=== PATIENT | female | born 1960 | race Caucasian/White ===

== ENCOUNTER → 2017-11-25 08:02 | Outpatient (CLI) | payer BC, SELFPAY ==
[2017-11-25 09:11] LABS: Absolute Lymphocyte Count 1.98 X10^3/ul (0.83-4.51); Absolute Neutrophil Count 3.8 X10^3/uL (2.0-7.7); Basophil# 0.04 X10^3/uL; Basophil% 0.6 % (0-1); Eosinophil# 0.24 X10^3/uL; Eosinophils% 3.6 % (0-5); Hematocrit 45.9 % (37-47); Hemoglobin 15.5 g/dl (12.0-15.0); Lymphocyte # 1.98 X10^3/ul (4.0); Mean Corp Hgb Conc 33.8 g/gl (32-36); Mean Corpuscular Hgb 30.6 pg (27.0-32.0); Mean Corpuscular Volume 90.7 fL (81-99); Mean Platelet Vol. 10.3 fl (6.2-12.0); Monocyte# 0.49 X10^3/uL; Monocyte% 7.4 % (0-10); Neutrophil # 3.84 X10^3/uL (2.7-7.7); Neutrophil % 58.1 % (47-70); Platelet Count 282 K/mm3 (150-450); RBC Distribution Width SD 42.6 fl (35.1-43.9); Red Blood Count 5.06 M/mm3 (4.2-5.4); White Blood Count 6.6 K/mm3 (4.4-11.0)
[2017-11-25 09:12] LABS: POSITIVE COUNT NO; POSITIVE DIFFERENTIAL NO; POSITIVE MORPHOLOGY NO
[2017-11-25 09:33] LABS: AST(SGOT) 24 U/L (15-37); Alanine Aminotransfer ALT/SGPT 43 U/L (13-56); Albumin, Serum 4.4 g/dL (3.2-5.0); Alkaline Phosphatase 78 U/L (45-117); Anion Gap 6 (5-15); BUN 18 mg/dL (7-18); BUN/Creat Ratio 29.8 RATIO (10-20); Bilirubin, Direct 0.14 mg/dL (0.00-0.30); Calcium,Total 9.5 mg/dL (8.5-10.1); Chloride 106 mmol/L (98-107); Cholesterol 213 mg/dL (200); EST Glomerular Filtration Rate 108 mL/min (>60); Est Glom Filt Rate - Afr Amer 131 mL/min (>60); Ferritin 63 ng/mL (8-252); Globulin 3.1 g/dL (2.2-4.2); Glucose 77 mg/dL (74-106); High Density Lipoprotein 41 mg/dL; Iron 170 ug/dL (50-170); Potassium 4.1 mmol/L (3.5-5.1); Protein, Total 7.5 g/dL (6.4-8.2); Sodium Level 142 mmol/L (136-145); Triglycerides 68 mg/dL; Very Low Density Lipoprotein 14 mg/dL (5-40)
== END ==
PROVIDERS: Internal Medicine Cardiovascular Disease; Family Provider Family Medicine; PCP Family Medicine; Visit Provider Family Medicine
DX: I10 Essential (primary) hypertension (principal); D64.9 Anemia, unspecified; E78.5 Hyperlipidemia, unspecified
CPT/HCPCS: 80048; 80061; 80076; 82728; 83540; 85025

== ENCOUNTER → 2018-04-27 13:22 | Outpatient (CLI) | payer BC, SELFPAY ==
--- NOTE | 2018-04-27 13:24 | RAD_ITS ---
STUDY: X-RAY - RIGHT ANKLE REASON FOR EXAM: Female, 58 years old. Pain off and on right ankle medially. Patient states twisted right ankle last August 2017. TECHNIQUE: 3 view(s) of the ankle. COMPARISON: None. FINDINGS: Normal visualized distal tibia and fibula. Normal medial and lateral malleoli. Normal tibiotalar articulation and ankle mortise. There is an enthesophyte involving the posterior superior calcaneus at the site of insertion of the Achilles tendon. There is a calcaneal spur. The visualized subtalar, talonavicular, calcaneocuboid and tarsal articulations are normal. The soft tissue structures are unremarkable. RAD/Ankle min 3 Views IMPRESSION: There is an enthesophyte involving the posterior superior calcaneus at the site of insertion of the Achilles tendon. There is a calcaneal spur. Electronically Signed: Alex Ren MD at 22:08 EDT , Service support ,
== END ==
PROVIDERS: Family Provider Family Medicine; PCP Family Medicine; Visit Provider Family Medicine
DX: M25.571 Pain in right ankle and joints of right foot (principal)
CPT/HCPCS: 73610

== ENCOUNTER → 2018-05-12 08:03 | Outpatient (CLI) | payer BC, SELFPAY ==
[2018-05-12 09:11] LABS: AST(SGOT) 25 U/L (15-37); Alanine Aminotransfer ALT/SGPT 53 U/L (13-56); Alkaline Phosphatase 69 U/L (45-117); Bilirubin, Direct 0.18 mg/dL (0.00-0.30); Cholesterol 144 mg/dL (200); Globulin 2.9 g/dL (2.2-4.2); High Density Lipoprotein 40 mg/dL; Protein, Total 6.9 g/dL (6.4-8.2); T4 Free Direct 1.12 ng/dL (0.76-1.46); Thyroid Stim Hormone (TSH) 0.41 uIU/mL (0.358-3.74); Triglycerides 65 mg/dL; Very Low Density Lipoprotein 13 mg/dL (5-40)
== END ==
PROVIDERS: Internal Medicine Cardiovascular Disease; Family Provider Family Medicine; PCP Family Medicine; Referring Provider Family Medicine; Visit Provider Family Medicine
DX: E01.0 Iodine-deficiency related diffuse (endemic) goiter (principal); E78.5 Hyperlipidemia, unspecified
CPT/HCPCS: 36415; 80061; 80076; 84439; 84443

== ENCOUNTER → 2018-10-10 11:20 | Outpatient (CLI) | payer BC, SELFPAY ==
[2018-09-18 14:10] VITALS: BMI 30.7
--- NOTE | 2018-10-11 14:24 | STRESSREP ---
Stress Test Report Treadmill EKG: Resting EKG: Normal sinus rhythm, normal axis, normal intervals, no evidence of previous myocardial infarction. Treadmill EKG: Patient exercise according to Fabrice protocol for 6 minutes and 30 seconds achieving a maximum workload of 7.70 mets. Resting heart rate was initially 63 beats a minute and thania to maximum of 1 5 0 bpm which represents 93% of the maximal age-predicted heart rate. Resting blood pressure was 142/72, and thania to maximum of 192/68. Test was terminated due to the attainment of target heart rate and leg discomfort. During exercise the patient's heart rate increased as expected. Patient had rare PVCs during exercise. Patient had subtle upsloping ST segment depression located along the inferior lateral leads at 2 minutes 56 seconds into exercise, with a maximal ST segment depression of [address] segment depression along the inferior lateral leads at 6 minutes 31 seconds. These changes quickly returned to baseline by 1 minute into recovery. Conclusions: Abnormal, adequate, treadmill EKG. Positive for ischemia by EKG criteria. No anginal symptoms noted. Mild PVCs noted during exercise. Hypertensive blood pressure response to exercise. Average exercise capacity for age. Recommend clinical correlation or alternative mode of testing if coronary ischemia is strongly suspected. No complications.
== END ==
PROVIDERS: Family Provider Family Medicine; PCP Family Medicine; Referring Provider Internal Medicine Cardiovascular Disease; Visit Provider Internal Medicine Cardiovascular Disease
DX: E78.5 Hyperlipidemia, unspecified (principal); I10 Essential (primary) hypertension; Z82.49 Family history of ischemic heart disease and other diseases of the circulatory system
CPT/HCPCS: 93017

== ENCOUNTER → 2018-10-24 12:24 | Outpatient (CLI) | payer BC, SELFPAY ==
[2018-09-18 14:10] VITALS: BMI 30.7
--- NOTE | 2018-10-24 12:30 | STE_ITS ---
Reason For Study: Abnormal Regular Stress Test; Family HX of CAD Stress Results Protocol: Fabrice Protocol Maximum Predicted HR: 161 bpm Target HR: 137 bpm % Maximum Predicted HR: 84 % DurationHeart Rate Stage (mm:ss) (bpm) BP Comment Baseline 65 160/82No Chest Pain Fabrice Protocol Stage I 3:00 113 170/80No Chest Pain Fabrice Protocol Stage II 3:00 129 188/84No Chest Pain; Mild Dyspnea Fabrice Protocol Stage III 1:00 136 / No Chest Pain; Mild to Moderate Dyspnea Recovery 87 132/78 Stress Duration: 7:00 mm:ss Maximum Stress HR: 136 bpm METS: 10 Baseline Echocardiogram Findings The estimated ejection fraction is 65 %. Stress Echo Wall motion Data Resting WM Intermediate WM Stress WM Resting Wall Motion Wall Motion Stress No regional wall motion No regional wall motion abnormalities noted. abnormalities noted. EKG Data Normal intervals are noted. The patient exercised according to the regular Fabrice protocol for a total duration of 7:00. The maximum heart rate attained was 139 beats per minute. This was 86% of maximum predicted heart rate. The patient exercised into stage 3 of the Fabrice protocol. The stress ECG displays diffuse abnormal ST segments. No clinical angina was noted. Interpretation Summary The estimated ejection fraction is 65 %. Normal, adequate, treadmill echocardiogram. Negative for ischemia by echocardiographic criteria. No anginal symptoms noted. Rare PVCs noted. Appropriate blood pressure response to exercise. Below average exercise capacity for age. Patient did have diffuse ST segment depression on her EKG during exercise which quickly resolved during recovery. No associated wall motion abnormalities noted. Final LVEF is 75%. Test terminated due to dyspnea and target heart rate achieved. No complications. Ordering Physician: Mayo Adams Referring Physician: Andre Lopez Performed By: Scarlett Heard RDCS
== END ==
PROVIDERS: Family Provider Family Medicine; PCP Family Medicine; Referring Provider Internal Medicine Cardiovascular Disease; Visit Provider Internal Medicine Cardiovascular Disease
DX: R94.39 Abnormal result of other cardiovascular function study (principal); E78.5 Hyperlipidemia, unspecified; I10 Essential (primary) hypertension; Z82.49 Family history of ischemic heart disease and other diseases of the circulatory system; Z98.890 Other specified postprocedural states
CPT/HCPCS: 93017; 93350

== ENCOUNTER → 2018-11-16 07:48 | Outpatient (CLI) | payer BC, SELFPAY ==
[2018-09-18 14:10] VITALS: BMI 30.7
[2018-11-16 08:37] LABS: AST(SGOT) 24 U/L (15-37); Alanine Aminotransfer ALT/SGPT 41 U/L (13-56); Albumin, Serum 4.2 g/dL (3.2-5.0); Alkaline Phosphatase 77 U/L (45-117); Bilirubin, Direct 0.19 mg/dL (0.00-0.30); Cholesterol 166 mg/dL (200); High Density Lipoprotein 41 mg/dL; Protein, Total 7.2 g/dL (6.4-8.2); Triglycerides 125 mg/dL; Very Low Density Lipoprotein 25 mg/dL (5-40)
== END ==
PROVIDERS: Family Provider Family Medicine; PCP Family Medicine; Referring Provider Nurse Practitioner Family; Visit Provider Nurse Practitioner Family
DX: E78.5 Hyperlipidemia, unspecified (principal)
CPT/HCPCS: 36415; 80061; 80076

== ENCOUNTER → 2019-10-25 | Outpatient (CLI) | payer BC, SELFPAY ==
[2019-04-12 14:46] VITALS: BMI 30.7
[2019-10-25 09:21] LABS: Absolute Lymphocyte Count 2.18 X10^3/uL (0.83-4.51); Absolute Neutrophil Count 4.3 X10^3/uL (2.0-7.7); Basophil# 0.07 X10^3/uL; Basophil% 0.9 % (0-1); Eosinophils% 2.7 % (0-5); Hematocrit 46.4 % (37-47); Hemoglobin 15.3 g/dL (12.0-15.0); Lymphocyte # 2.18 X10^3/ul (4.0); Lymphocyte % 29.3 % (19-41); Mean Corpuscular Hgb 30.5 pg (27.0-32.0); Mean Corpuscular Volume 92.4 fL (81-99); Mean Platelet Vol. 9.8 fl (6.2-12.0); Monocyte# 0.62 X10^3/uL; Monocyte% 8.3 % (0-10); NRBC Flagged by Analyzer 0 % (0-5); Neutrophil # 4.33 X10^3/uL (2.7-7.7); Neutrophil % 58.3 % (47-70); Platelet Count 294 K/mm3 (150-450); RBC Distribution Width CV 12.7 % (11.6-14.6); RBC Distribution Width SD 42.7 fl (35.1-43.9); Red Blood Count 5.02 M/mm3 (4.2-5.4); White Blood Count 7.4 K/mm3 (4.4-11.0)
[2019-10-25 09:48] LABS: AST(SGOT) 26 U/L (15-37); Alanine Aminotransfer ALT/SGPT 48 U/L (13-56); Albumin, Serum 4.2 g/dL (3.2-5.0); Alkaline Phosphatase 84 U/L (45-117); Bilirubin, Direct 0.16 mg/dL (0.00-0.30); Cholesterol 194 mg/dL (200); High Density Lipoprotein 43 mg/dL; Protein, Total 7.2 g/dL (6.4-8.2); Triglycerides 156 mg/dL; Very Low Density Lipoprotein 31 mg/dL (5-40)
[2019-10-25 09:50] LABS: Anion Gap 2 (5-15); BUN 15 mg/dL (7-18); BUN/Creat Ratio 24.2 RATIO (10-20); Calcium,Total 9.7 mg/dL (8.5-10.1); Chloride 107 mmol/L (98-107); Creatinine, Serum 0.62 mg/dL (0.55-1.02); EST Glomerular Filtration Rate 104 mL/min (>60); Est Glom Filt Rate - Afr Amer 126 mL/min (>60); Glucose 99 mg/dL (74-106); Potassium 4.2 mmol/L (3.5-5.1); Sodium Level 141 mmol/L (136-145)
== END | disposition home or self-care (01) ==
LOC: LAB 08:56
PROVIDERS: Internal Medicine Cardiovascular Disease; Family Provider Family Medicine; PCP Family Medicine; Referring Provider Family Medicine; Visit Provider Family Medicine
DX: I10 Essential (primary) hypertension (principal); D64.9 Anemia, unspecified; E78.5 Hyperlipidemia, unspecified
CPT/HCPCS: 36415; 80048; 80061; 80076; 85025

== ENCOUNTER → 2020-05-08 | Outpatient (CLI) | payer BC, SELFPAY ==
[2020-05-08 09:40] VITALS: BMI 31.1
[2020-05-08 11:11] LABS: AST(SGOT) 25 U/L (15-37); Alanine Aminotransfer ALT/SGPT 46 U/L (13-56); Albumin, Serum 4.2 g/dL (3.2-5.0); Alkaline Phosphatase 82 U/L (45-117); Bilirubin, Direct 0.21 mg/dL (0.00-0.30); Cholesterol 174 mg/dL (200); Globulin 3.1 g/dL (2.2-4.2); High Density Lipoprotein 39 mg/dL; Protein, Total 7.3 g/dL (6.4-8.2); Triglycerides 178 mg/dL; Very Low Density Lipoprotein 36 mg/dL (5-40)
== END | disposition home or self-care (01) ==
LOC: LAB 10:07
PROVIDERS: PCP Family Medicine; Referring Provider Physician Assistant Medical; Visit Provider Physician Assistant Medical
DX: E78.5 Hyperlipidemia, unspecified (principal)
CPT/HCPCS: 36415; 80061; 80076

== ENCOUNTER 2020-10-23 08:00 | Outpatient (RCR) | payer BC, SELFPAY ==
[2020-05-08 09:40] VITALS: BMI 31.1
[2020-10-23] MEDS: COVID-19 VACC, MRNA(PFIZER)/PF 30 MCG/0.3 ML SYRINGE IM (15:47)
[2020-11-13] MEDS: COVID-19 VACC, MRNA(PFIZER)/PF 30 MCG/0.3 ML SYRINGE IM (15:17)
== END 2020-10-23 23:59 ==
LOC: IMMUN 08:00
PROVIDERS: PCP Family Medicine; Visit Provider Family Medicine
DX: Z23 Encounter for immunization (principal)
CPT/HCPCS: 0001A; 0002A; 91300

== ENCOUNTER → 2021-02-20 09:28 | Outpatient (CLI) | payer BC, SELFPAY ==
[2020-05-08 09:40] VITALS: BMI 31.1
[2021-02-20 10:25] LABS: AST(SGOT) 28 U/L (15-37); Alanine Aminotransfer ALT/SGPT 49 U/L (13-56); Albumin, Serum 4.2 g/dL (3.2-5.0); Alkaline Phosphatase 80 U/L (45-117); Bilirubin, Direct 0.19 mg/dL (0.00-0.30); Cholesterol 178 mg/dL (200); High Density Lipoprotein 43 mg/dL; Protein, Total 7.2 g/dL (6.4-8.2); Triglycerides 124 mg/dL; Very Low Density Lipoprotein 25 mg/dL (5-40)
== END ==
PROVIDERS: PCP Family Medicine; Referring Provider Physician Assistant Medical; Visit Provider Physician Assistant Medical
DX: E78.5 Hyperlipidemia, unspecified (principal); E78.00 Pure hypercholesterolemia, unspecified
CPT/HCPCS: 36415; 80061; 80076

== ENCOUNTER 2021-08-16 07:43 | Outpatient (CLI) | payer BC, SELFPAY ==
[2021-08-16 10:03] LABS: AST(SGOT) 29 U/L (15-37); Alanine Aminotransfer ALT/SGPT 57 U/L (13-56); Alkaline Phosphatase 78 U/L (45-117); Bilirubin, Direct 0.19 mg/dL (0.00-0.30); Cholesterol 186 mg/dL (200); Globulin 3.2 g/dL (2.2-4.2); High Density Lipoprotein 41 mg/dL; Protein, Total 7.2 g/dL (6.4-8.2); Triglycerides 134 mg/dL; Very Low Density Lipoprotein 27 mg/dL (5-40)
== END 2021-08-16 23:59 | disposition home or self-care (01) ==
LOC: LAB 07:46
PROVIDERS: PCP Family Medicine; Referring Provider Nurse Practitioner Gerontology; Visit Provider Nurse Practitioner Gerontology
DX: E78.00 Pure hypercholesterolemia, unspecified (principal)
CPT/HCPCS: 36415; 80061; 80076

== ENCOUNTER → 2022-08-19 | Outpatient (CLI) | payer BC, SELFPAY ==
--- NOTE | 2022-08-19 15:15 | US_ITS ---
INDICATION: NODULE EXAMINATION: Ultrasound US Thyroid (eg thyroid, parathyroid, parotid) TECHNIQUE: Tse scale and color doppler imaging was performed of the thyroid gland. COMPARISON: None. FINDINGS: RIGHT THYROID LOBE: 4.2 x 1.4 x 0.9. Heterogeneous echotexture with normal vascularity. Lower pole 0.79 x 0.46 x 0.68 cm hypoechoic nodule. Trads Category 2. 0.3 x 0.2 x 0.2 cm mid pole complex cyst. LEFT THYROID LOBE: 4.6 x 1.9 x 1.9 cm.. Heterogeneous echotexture with normal vascularity. 0.76 x 0.55 x 0.55 cm mixed cystic and solid nodule with mixed echogenicity and lobular borders to as category 3. 0.3 x 0.3 x 0.3 cm cyst midpole. ISTHMUS: 0.3 cm. No thyroid nodules are present. US/Thyroid IMPRESSION: Multinodular goiter as above. Electronically Signed: Andre De La O MD, ROLANDO at 23:32 EST ,
== END | disposition home or self-care (01) ==
PROVIDERS: PCP Family Medicine; Referring Provider Family Medicine; Visit Provider Family Medicine
DX: E04.1 Nontoxic single thyroid nodule (principal)
CPT/HCPCS: 76536

== ENCOUNTER → 2022-11-26 | Outpatient (CLI) | payer BC, SELFPAY ==
[2022-11-26 09:11] LABS: AST(SGOT) 32 U/L (15-37); Alanine Aminotransfer ALT/SGPT 59 U/L (13-56); Albumin, Serum 4.1 g/dL (3.2-5.0); Alkaline Phosphatase 73 U/L (45-117); Bilirubin, Direct 0.25 mg/dL (0.00-0.30); Cholesterol 180 mg/dL (200); Globulin 2.7 g/dL (2.2-4.2); High Density Lipoprotein 43 mg/dL; Protein, Total 6.8 g/dL (6.4-8.2); Triglycerides 117 mg/dL; Very Low Density Lipoprotein 23 mg/dL (5-40)
== END | disposition home or self-care (01) ==
LOC: LAB 08:35
PROVIDERS: PCP Family Medicine; Referring Provider Physician Assistant Medical; Visit Provider Physician Assistant Medical
DX: E78.5 Hyperlipidemia, unspecified (principal); Z82.49 Family history of ischemic heart disease and other diseases of the circulatory system
CPT/HCPCS: 36415; 80061; 80076

== ENCOUNTER → 2024-01-05 | Outpatient (CLI) | payer BC, SELFPAY ==
[2024-01-05 09:59] LABS: AST(SGOT) 24 U/L (15-37); Alanine Aminotransfer ALT/SGPT 43 U/L (13-56); Albumin, Serum 4.2 g/dL (3.2-5.0); Alkaline Phosphatase 74 U/L (45-117); Bilirubin, Direct 0.25 mg/dL (0.00-0.30); Cholesterol 180 mg/dL (200); Globulin 2.9 g/dL (2.2-4.2); High Density Lipoprotein 43 mg/dL; Protein, Total 7.1 g/dL (6.4-8.2); Triglycerides 126 mg/dL; Very Low Density Lipoprotein 25 mg/dL (5-40)
== END | disposition home or self-care (01) ==
PROVIDERS: PCP Family Medicine; Referring Provider Physician Assistant Medical; Visit Provider Physician Assistant Medical
DX: E78.00 Pure hypercholesterolemia, unspecified (principal)
CPT/HCPCS: 36415; 80061; 80076

== ENCOUNTER → 2024-04-11 | Outpatient (CLI) | payer SELFPAY ==
--- NOTE | 2024-04-11 13:11 | CT_ITS ---
STUDY: CT CHEST WITHOUT CONTRAST REASON FOR EXAM: Female, 64 years old. HTN RADIATION DOSAGE (If Supplied By Facility): CTDIvol = ( 12.19 ) mGy, DLP = ( 195.04 ) mGycm TECHNIQUE: Transaxial imaging was performed without the administration of intravenous contrast material. Cardiac over read examination. Individualized dose optimization techniques were used for this CT. COMPARISON: No relevant priors. FINDINGS: CHEST Minimal linear scarring along the anterior medial aspect of the right middle lobe and lingular segment of the left upper lobe. There is no demonstrated pleural abnormality. There are calcifications of the coronary arteries. Normal mediastinum. Normal hilar regions. Normal unenhanced pulmonary arteries. There is atherosclerotic calcification of the aortic arch. Normal osseous structures. There is no demonstrated abnormality of the visualized upper abdomen. CT/Limited Chest CT Cardiac Only IMPRESSION: Coronary artery calcification. Mild linear scarring along the anterior medial aspect of the right middle lobe and lingular segment of the left upper. Electronically Signed: Vaibhav Leos MD at 14:10 EDT ,
--- NOTE | 2024-04-16 06:38 | CA.SCORE ---
Calcium Scoring Date of Study:: 04/11/24 Indications Indications: Hypertension Coronary Calcium Scoring: High-resolution Computed Tomographic imaging of the chest was performed on [04/11/2024], with particular attention paid to the coronary arteries. Images from the examination were analyzed for the presence and extent of coronary artery calcification , using coronary calcium quantification software. The patient tolerated the procedure well and there were no complications. The results of the coronary calcification analysis are provided below. Findings Coronary Artery Left Main (LM): 0 Left Anterior Descending (LAD): 0 Left Circumflex (LCX): 31 Right Coronary Artery (RCA): 52.3 Total Agatston Score: 83.3 Percentile Rankin-75th percentile Calcium Scoring Interpretation: Different methods to categorize the overall amount of coronary plaque. Overall amount CAC SIS Visual of coronary plaque P1 Mild -100 <2 1-2 vessels with mild amount of plaque P2 Moderate 101-300 3-4 1-2 vessels with moderate amount, 3 vessels with mild amount of plaque P3 Severe 301-999 5-7 3 vessels with moderate amount, 1 vessel with severe amount of plaque P4 Extensive >1000 >8 2-3 vessels with severe amount of plaque Calcium Score: Mild: 1-2 vessels w/mild amount of plaque Conclusion: Mild atherosclerotic plaquing noted in the right coronary artery.
== END | disposition home or self-care (01) ==
PROVIDERS: PCP Family Medicine; Referring Provider Physician Assistant Medical; Visit Provider Physician Assistant Medical
DX: I10 Essential (primary) hypertension (principal); E78.5 Hyperlipidemia, unspecified; Z82.49 Family history of ischemic heart disease and other diseases of the circulatory system
CPT/HCPCS: 75571; 76380

== ENCOUNTER → 2024-06-19 | Outpatient (CLI) | payer MEDICARE, SELFPAY ==
[2024-06-19 08:51] LABS: Absolute Lymphocyte Count 2.41 X10^3/uL (0.83-4.51); Absolute Neutrophil Count 4.6 X10^3/uL (2.0-7.7); Basophil# 0.07 X10^3/uL; Basophil% 0.9 % (0-1); Eosinophil# 0.28 X10^3/uL; Eosinophils% 3.5 % (0-5); Hematocrit 43.9 % (37-47); Hemoglobin 14.8 g/dL (12.0-15.0); Lymphocyte # 2.41 X10^3/ul (0.83-4.51); Lymphocyte % 30.4 % (19-41); Mean Corp Hgb Conc 33.7 g/dL (32-36); Mean Corpuscular Hgb 30.6 pg (27.0-32.0); Mean Corpuscular Volume 90.7 fL (81-99); Mean Platelet Vol. 10.2 fl (6.2-12.0); Monocyte% 6.3 % (0-10); NRBC Flagged by Analyzer 0 % (0-5); Neutrophil # 4.61 X10^3/uL (2.7-7.7); Neutrophil % 58.3 % (47-70); Platelet Count 269 K/mm3 (150-450); RBC Distribution Width CV 12.7 % (11.6-14.6); RBC Distribution Width SD 42.1 fl (35.1-43.9); Red Blood Count 4.84 M/mm3 (4.2-5.4); White Blood Count 7.9 K/mm3 (4.4-11.0)
[2024-06-19 09:32] LABS: AST(SGOT) 25 U/L (15-37); Alanine Aminotransfer ALT/SGPT 44 U/L (13-56); Alkaline Phosphatase 91 U/L (45-117); Anion Gap 4 (5-15); BUN 14 mg/dL (7-18); BUN/Creat Ratio 21.9 RATIO (10-20); Bilirubin, Direct 0.25 mg/dL (0.00-0.30); Calcium,Total 9.7 mg/dL (8.5-10.1); Chloride 106 mmol/L (98-107); Cholesterol 168 mg/dL (200); Creatinine, Serum 0.64 mg/dL (0.55-1.02); EST Glomerular Filtration Rate 99 mL/min (>60); Est Glom Filt Rate - Afr Amer 120 mL/min (>60); Globulin 2.7 g/dL (2.2-4.2); Glucose 94 mg/dL (74-106); High Density Lipoprotein 46 mg/dL; Potassium 4.1 mmol/L (3.5-5.1); Protein, Total 6.7 g/dL (6.4-8.2); Sodium Level 140 mmol/L (136-145); Thyroid Stim Hormone (TSH) 0.617 uIU/mL (0.358-3.740); Triglycerides 118 mg/dL; Very Low Density Lipoprotein 24 mg/dL (5-40)
== END | disposition home or self-care (01) ==
LOC: LAB 08:16
PROVIDERS: PCP Family Medicine; Referring Provider Physician Assistant Medical; Visit Provider Physician Assistant Medical
DX: I10 Essential (primary) hypertension (principal); E04.2 Nontoxic multinodular goiter
CPT/HCPCS: 36415; 80048; 80061; 80076; 84443; 85025

== ENCOUNTER → 2025-01-13 | Outpatient (CLI) | payer MEDICARE, SELFPAY ==
[2025-01-13 09:38] LABS: AST(SGOT) 26 U/L (<=31); Alanine Aminotransfer ALT/SGPT 38 U/L (<=34); Albumin, Serum 4.4 g/dL (3.4-4.8); Alkaline Phosphatase 85 U/L (35-104); Bilirubin, Direct 0.26 mg/dL (0.00-0.30); Cholesterol 167 mg/dL (<=200); Globulin 2.2 g/dL (2.2-4.2); High Density Lipoprotein 42 mg/dL; Low Density Lipoprotein Calc. 101 mg/dL; Protein, Total 6.6 g/dL (5.9-8.4); Total Bilirubin 0.62 mg/dL (0.00-1.30); Triglycerides 119 mg/dL; Very Low Density Lipoprotein 24 mg/dL (5-40); cholesterol:hdl ratio screen 3.97
== END | disposition home or self-care (01) ==
LOC: LAB 06:18
PROVIDERS: PCP Family Medicine; Referring Provider Physician Assistant Medical; Visit Provider Physician Assistant Medical
DX: E78.00 Pure hypercholesterolemia, unspecified (principal)
CPT/HCPCS: 36415; 80061; 80076

== ENCOUNTER → 2025-07-14 | Outpatient (CLI) | payer MEDICARE, SELFPAY ==
--- OUTSIDE RECORDS SUMMARY | 2025-07-14 06:30 | XMS RPT_ITS | CCD ---
Author Organization [facility] Care Team Providers Care Appraiser Personal Property Name Role Phone LORRAINE Fox, Tegan Roque Unavailable Unavailbarbara Fox RN, Tegan Roque Unavailable UnavailCheli Ybarra Unavailable Unavailable LORRAINE Fox, Tegan Roque Unavailable Unavailbarbara Andrea RN, Soraida A Unavailable Unavailable DeFinis, Harumi Y Unavailable Unavailable Eneida Luui Unavailable Unavailable Cheli Luu Unavailable Unavailable Alexus Ortiz Primary Care Provider UnavailDr. Luis Miguel Molina Primary Care Provider Dr. Luis Miguel Gilbert Referring Provider ABDELRAHMAN Berumen Attending Provider Alexus Ortiz Primary Care Provider UnavailAlexus Campbell Primary Care Provider UnavailLuis Miguel Molina DO Primary Care Provider Leah Berumen Referring Unavail able Luis Miguel Gilbert Primary Care Unavailable Leah Berumen Attending Unavail able Luis Miguel Gilbert Primary Care Unavailable Luis Miguel Gilbert Referring Unavailable Piotr Santos Attending Unavailable Leah Berumen Referring Unavail able Leah Berumen Attending Unavail able Luis Miguel Gilbert Primary Care Unavailable Rod Angel Attending Unavailable Leah Berumen Referring Unavail able Leah Berumen Consulting Unavail able Luis Miguel Gilbert Primary Care Unavailable oRd Angel Attending Unavailable Leah Berumen Referring Unavail able Luis Miguel Gilbert Primary Care Unavailable Leah Berumen Attending Unavail able Dr. Luis Miguel Gilbert DO Primary Care Provider Leah Berumen Attending Provider [phone] Leah Berumen Referring Provider Dr. Luis Miguel Gilbert DO Referring Provider Dr. Piotr Santos MD Attending Provider LUIS MIGUEL GILBERT Primary Care Unavailable NIA GRIFFIN Referring Unavail able NIA GRIFFIN Referring Unavail able LUIS MIGUEL GILBERT Primary Care Unavailable OLENA ALEXUS MCLAUGHLIN Primary Care Unavailable NIA GRIFFIN Attending Unavail able Medications Current Medications Medication Drug Class(es) Dates Sig (Normalized) Sig (Original) aspirin 81 mg delayed release oral tablet (20 sources) Nonsteroidal Anti-inflammatory Drug Start: 09-06-2017 Aspirin (Adult Low Dose Aspirin) 81 mg tablet,delayed release (DR/EC) Active 81 mg PO daily September 06, 2017 1:00am Start: 01-19-2015 take 1 tablet by [place] once daily ASPIRIN 81 MG TABS One tablet by mouth daily ASPIRIN [id number] Mayo Adams MD Start: 01-19-2015 take 1 tablet by [place] once daily ASPIRIN 81 MG TABS One tablet by mouth daily ASPIRIN [id number] Mayo Adams MD Comment on above: Take 81 mg by mouth once daily. atorvastatin 40 mg oral tablet (6 sources) HMG-CoA Reductase Inhibitor Start: 04-16-20 24 take 1 tablet by mouth once daily at bedtime atorvastatin (LIPITOR) 40 mg tablet Take 40 mg by mouth daily at bedtime. 07/13/2024 Active Calcium Carb, Citrate, Malate 250 mg calcium capsule (2 sources) Start: 01-17-20 25 take 1 mg by mouth once daily Calcium Carb, Citrate, Malate 250 mg calcium capsule Active mg PO DAILY January 16, 2025 12:00am cholecalciferol 0.05 mg oral tablet (20 sources) Vitamin D Start: 03-22-20 18 take 1 tablet by mouth once daily Cholecalciferol (Vitamin D3) 2,000 unit tablet Active 2000 U PO daily March 22, 2018 12:00am Start: 09-07-2017 End: 03-22-2018 take 1 tablet by mouth once Cholecalciferol (Vitamin D 3) (Vitamin D3) 2,000 unit tablet Discontinued 2000 U PO ONCE 30 September 07, 2017 1:00am March 22, 2018 2:42pm Cholecalciferol, Vitamin D3, 50 mcg (2,000 unit) cap Take by mouth. Active Comment on above: Take by mouth. loratadine 10 mg oral tablet (11 sources) Start: 01-16-2025 take 1 tablet by mouth once daily Loratadine (Claritin) 10 mg tablet Active 10 mg PO daily January 16, 2025 12:00am take 1 tablet by mouth once indigo y loratadine (LORADAMED) 10 mg tablet Take 10 mg by mouth once daily. Active Comment on above: Take 10 mg by mouth once daily. Completed/Discontinued Medications Medication Drug Class(es) Dates Sig (Normalized) Sig (Original) atenolol 50 mg oral tablet (20 sources) beta-Adrenergic Ruth Start: 09-06-2017 End: 03-22-2018 Atenolol 50 mg tablet Discontinued 25 mg PO daily September 06, 2017 1:00am March 22, 2018 2:42pm Start: 09-06-2017 End: 03-22-2018 take 25 mg by mouth once daily Atenolol Discontinued 2 5 MG PO daily September 06, 2017 1:00am March 22, 2018 2:42pm Start: 01-19-2015 End: 02-20-2024 take 1 tablet by mouth once daily Atenolol 50 mg tablet Discontinued 50 mg PO daily December 19, 2022 10:02am January 05, 2024 8:48am Comment on above: Take 50 mg by mouth once daily. cetirizine hydrochloride 10 mg oral tablet (4 sources) Histamine-1 Receptor Antagonist Start: 2020 End: 2024 take 1 tablet by mouth once daily as needed Cetirizine (Zyrtec) 10 mg tablet Discontinued 10 mg PO DAILY as needed 2021 12:00am January 16, 2025 10:56am gemfibrozil 600 mg oral tablet (4 sources) Peroxisome Proliferator Receptor alpha Agonist Start: 2017 End: 2017 Gemfibrozil 600 mg tablet Discontinued 600 mg PO TWICE A DAY 60 October 10, 2017 1:00am March 22, 2018 2:58pm administer 30 minutes before morning and evening meals hydroCHLOROthiazide 12.5 mg oral tablet (20 sources) Thiazide Diuretic Start: 2017 End: 2023 take 1 tablet by mouth once daily Hydrochlorothiazide 12.5 mg tablet Discontinued 12.5 mg PO daily March 13, 2023 1:03pm January 05, 2024 8:48am Start: 03-13-2017 take 1 tablet by [place] once daily HYDROCHLOROTHIAZIDE 12.5 MG TABS One tablet by mouth daily HYDROCHLOROTHIAZIDE [id number] Walter Reyes NP lisinopril 2.5 mg oral tablet (17 sources) Angiotensin Converting Enzyme Inhibitor Start: 06-06-2022 End: 01-05-2024 take 1 tablet by mouth once daily Lisinopril 2.5 mg tablet Discontinued 2.5 mg PO DAILY May 29, 2023 8:58am January 05, 2024 8:48am Comment on above: Take 2.5 mg by mouth once daily. meloxicam 15 mg oral tablet (16 sources) Nonsteroidal Anti-inflammatory Drug Start: 01-19-2015 End: 02-17-2015 take 1 tablet by mouth once daily MELOXICAM 15 MG TABS One tablet by mouth daily MELOXICAM [id number] Mayo Adams MD MULTIPLE VITAMINS-MINERALS (9 sources) Start: 02-17-2015 take 1 tablet by mouth once daily CENTRUM SILVER TABS One tablet by mouth daily MULTIPLE VITAMINS-MINERALS [id number] Mayo Adams MD Start: 02-17-2015 End: 02-27-2017 take 1 tablet by mouth once daily CENTRUM SILVER TABS One tablet by mouth daily MULTIPLE VITAMINS-MINERALS [id number] Walter Reyes NP Start: 02-17-2015 End: 02-27-2017 take 1 tablet by mouth once daily CENTRUM SILVER TABS One tablet by mouth daily MULTIPLE VITAMINS-MINERALS [id number] Walter Reyes NP Start: 02-17-2015 take 1 tablet by [place] once daily CENTRUM SILVER TABS One tablet by mouth daily MULTIPLE VITAMINS-MINERALS [id number] Mayo Adams MD MULTIPLE VITAMINS-MINERALS (5 sources) Start: 02-17-2015 End: 02-27-2017 take 1 tablet by mouth once daily CENTRUM SILVER TABS One tablet by mouth daily MULTIPLE VITAMINS-MINERALS [id number] Walter Reyes BLANQUITA Start: 02-17-2015 take 1 tablet by [place] once daily CENTRUM SILVER TABS One tablet by mouth daily MULTIPLE VITAMINS-MINERALS [id number] Mayo Adams MD Multivitamin preparation (2 sources) Start: 2021 End: 06-06-2022 take 1 tablet by mouth once daily Multivitamin Discontinued 1 TABLET PO DAILY 2021 12:00am June 06, 2022 11:16am Start: 2021 End: 06-06-2022 take 1 tablet by mouth once daily Multivitamin Discontinued 1 TABLET PO DAILY February 22, 2021 11:00pm June 06, 2022 10:16am Multivitamin tablet (2 sources) Start: 2021 End: 06-06-2022 Multivitamin tablet Discontinued 1 {tbl} PO DAILY 2021 12:00am June 06, 2022 11:16am nadolol 20 mg oral tablet (8 sources) beta-Adrenergic Ruth Start: 01-19-2015 take 1 tablet by mouth once daily NADOLOL 20 MG TABS One tablet by mouth daily NADOLOL [id number] MIGEL SortoC simvastatin 40 mg oral tablet (20 sources) HMG-CoA Reductase Inhibitor Start: 03-22-2018 End: 04-16-2024 take 1 tablet by mouth once daily in the evening Simvastatin 40 mg tablet Discontinued 40 mg PO EVERY EVENING February 20, 2024 7:59am April 16, 2024 4:08pm Start: 09-06-2017 End: 10-10-2017 take 1 tablet by mouth once daily in the evening Simvastatin 40 mg tablet Discontinued 40 mg PO EVERY EVENING September 06, 2017 1:00am October 10, 2017 6:53pm Start: 01-19-2015 take 1 tablet by [place] once daily SIMVASTATIN 40 MG TABS one tablet by mouth every night SIMVASTATIN [id number] Mayo Adams MD Start: 06-07-2010 End: 07-31-2024 simvastatin 20 mg ORAL table t Take 40 mg by mouth. Avoid grapefruit juice. 0 06/07/2010 07/31/2024 Discontinued Start: 06-07-2010 take 1 tablet by [place] once daily simvastatin 20 mg ORAL tablet Take one(1) tablet daily. 0 06/07/2010 Active Comment on above: Take one(1) tablet d aily. Take 40 mg by mouth. Avoid grapefruit juice. Problems Active Problems Problem Classification Problem Date Documented Date Episodic/Chronic Disorders of lipid metabolism (17 sources) Hyperlipidemia; Translations: [Hyperlipidemia, unspecified] Onset: 02-10-2015 02-10-2015 Chronic Essential hypertension (20 sources) Hypertensive disorder; Translations: [Essential hypertension] Onset: 06-15-2012 01-16-2015 Chronic Other nutritional; endocrine; and metabolic disorders (6 sources) Body mass index (BMI) 30.0-30.9, adult; Translations: [Body mass index (BMI) 30.0-30.9, adult] Onset: 01-16-2015 02-27-2017 Chronic Other nutritional; endocrine; and metabolic disorders (13 sources) Obese class I; Translations: [Obesity, unspecified] Onset: 04-04-2022 Chronic Other screening for suspected conditions (not mental disorders or infectious disease) (11 sources) Patient encounter status; Translations: [Encounter for screening mammogram for malignant neoplasm of breast] Onset: 09-23-2024 Episodic Residual codes; unclassified (8 sources) Family history of ischemic heart disease; Translations: [Family history of ischemic heart disease and other diseases of the circulatory system] Onset: 01-19-2015 01-19-2015 Episodic Residual codes; unclassified (3 sources) Menopause present; Translations: [Asymptomatic menopausal state] 07-31-2024 Episodic Residual codes; unclassified (3 sources) Postmenopausal state; Translations: [Asymptomatic menopausal state] 07-31-2024 Episodic Past or Other Problems Problem Classification Problem Date Documented Date Episodic/Chronic Conditions associated with dizziness or vertigo (8 sources) Dizziness and giddiness; Translations: [Dizziness and giddiness] Onset: 01-16-2015 01-16-2015 Episodic Other aftercare (13 sources) Other alf (current) drug therapy; Translations: [Long-term (current) use of other medications] Onset: 01-19-2015 02-10-2015 Episodic Other nutritional; endocrine; and metabolic disorders (8 sources) Body mass index (BMI) 29.0-29.9, adult; Translations: [Body mass index (BMI) 29.0-29.9, adult] Onset: 01-16-2015 01-16-2015 Episodic Residual codes; unclassified (4 sources) History of cardiac catheterization; Translations: [Other specified postprocedural states] Onset: 11-20-2003 01-26-2021 Episodic Comment on above: Normal Coronaries Residual codes; unclassified (2 sources) Asymptomatic menopausal state; Translations: [Asymptomatic menopause] Onset: 09-23-2024 Episodic Unclassified (16 sources) Family history of ischemic heart disease and other diseases of the circulatory system; Translations: [Family history of ischemic heart disease] Onset: 01-19-2015 01-19-2015 Episodic Unclassified (3 sources) Long-term drug therapy; Translations: [Long-term (current) use of other medications] Onset: 01-19-2015 01-19-2015 Unclassified (1 source) Patient encounter status 09-23-2024 Results Test Name Value Interpretation Reference Range Facility [facility] 05-22-2025 [facility] Telephone (OBGYWM) MARINE CARTER ([id number]) 1960 F [facility] Date Time Provider Department 05/22/25 NIA GRIFFIN OBGYWJude During your visit today, we recorded the following information about you: Nga Merino RN 05/22/2025 9:58 AM Signed Result Note I am pleased to report your mammogram is normal. Because your breast tissue is dense, you are eligible for supplemental imaging with whole breast ultrasound. This test improves breast cancer detection and may result in the need for additional testing (biopsy, six-month follow up imaging or both). If you want to have this supplemental screening test, please check with your insurance to see if it is covered and what your [id number] expense will be. Please reach out through [employer] or by phone if you would like an order placed or if you would like to schedule an appointment to discuss further with an available provider. Whole breast ultrasound does not replace annual mammograms; this test is in addition to regular mammograms which are the most important way to screen for breast cancer. MANNY SCREENING W Nga Daniels RN 05/22/2025 9:58 AM Signed Left message for patient to call office. LORRAINE Headley Annalee, LPN 05/22/2025 11:35 AM Signed Patient notified and wants to check with insurance before scheduling Allergies As of Date: 05/22/2025 (No Known Allergies) Date Reviewed: 07/31/2024 Reviewed by: Ines Escobar MA - Fully Assessed Reason for Visit: Results [95] Prescriptions as of 05/22/2025 - atorvastatin (LIPITOR) 40 mg tablet Take 40 mg by mouth daily at bedtime. - lisinopril 2.5 mg tablet Take 2.5 mg by mouth once daily. - loratadine (LORADAMED) 10 mg tablet Take 10 mg by mouth once daily. - hydroCHLOROthiazide (HYDRODIURIL, ESIDRIX) 12.5 mg tablet - atenolol (TENORMIN) 50 mg tablet Take 50 mg by mouth once daily. - aspirin, enteric coated (ASPIRIN, ENTERIC COATED) 81 mg EC tablet Take 81 mg by mouth once daily. - Cholecalciferol, Vitamin D3, 50 mcg (2,000 unit) cap Take by mouth. Problem List As Of Date 05/22/2025 Noted Resolved Unspecified essential hypertension [I10] 06/15/2012 Obesity, Class I, BMI 30-34.9 [E66.811] 04/04/2022 Encounter Status:Closed by LULY SURESH on 05/22/25 Normal [facility] SCREENING W TOMOon 05-19 MANNY SCREENING W OSMAN * * *Final Report* * * DATE OF EXAM: May 19 2025 9:11AM WRW [id number] - MANNY SCREENING W OSMAN / PROCEDURE REASON: Encounter for screening mammogram for breast cancer * * * * Physician Interpretation * * * * RESULT: [facility] [address] [place] [address] #[id number] - [facility] SCREENING W OSMAN HISTORY: 65 year-old patient presents for screening. Patient is asymptomatic in both breasts. The patient has a family history of breast cancer. COMPARISON STUDIES: The present examination has been compared to prior imaging studies dated 03/09/2020 (mammogram), 04/05/2021 (mammogram), 04/04/2022 (mammogram), 04/10/2023 (mammogram) and 05/16/2024 (mammogram). MAMMOGRAM TECHNIQUE: The study was acquired using full field digital technology and interpreted from soft copy. Digital Breast Tomosynthesis (DBT) images were obtained and used to assist in the interpretation of this examination. MAMMOGRAM FINDINGS: The breasts are heterogeneously dense, which may obscure small masses. No suspicious masses, calcifications or other abnormalities are seen in either breast. There are no significant interval changes. IMPRESSION: There is no mammographic evidence of malignancy in either breast. Routine screening mammogram is recommended. Annual mammogram will be due in 1 year. BI-RADS Category 1: Negative RISK: Based on the Tyrer-Cuzick (TC) risk assessment model, this patient has a 8.3% lifetime risk of developing breast cancer, meaning they are at average risk for developing breast cancer. However, this is only an estimate based on available history provided on the patient's questionnaire. We encourage all patients to talk with their providers about these results, further recommendations for managing breast health, and appropriate supplemental screening options if the patient has dense breast tissue. Interpreting Radiologist: Chloe Ramos M.D. Resident/Fellow: Cesar Cantu D.O. Electronically signed on: 05/21/2025 Doctor Of Optometry: PHILLIP Transcrilucinda Date/Time: May 19 2025 8:59A Dictated by: CESAR CANTU, DO This examination was interpreted and the report reviewed and electronically signed by: CHLOE RAMOS MD on May 21 2025 9:06AM EST [id number] Normal [facility] Cardiology Visit Reporton Cardiology Visit Report [facility] [address] [place] [address] OFFICE VISIT Date of Service: 01/16/25 MR#: [id number] Acct: [id number] Name: MARINE CARTER Rep #: [id number] : 1960 Provider: Dr. Piotr webb MD Age/Sex: 64/F Location: [facility] Status: Signed HPI HPI History of Present Illness Details: Patient is a pleasant 64-year-old white female that comes in today for monitoring of her cardiovascular status. Patient carries a history of hypertension and hyperlipidemia and a strong family history of coronary disease. She reports that she is doing very well in her home environment she is aerobically active she routinely walks and has noticed no change in her exercise tolerance. She denies any lower extremity edema denies any PND orthopnea denies any syncope or near syncope. Patient denies any chest pains. She brought in a list of her blood pressures in her home environment they range from 100 systolic 115???125 and diastolic of 63???75. Here in the office she is always elevated she is 183/97 today with a heart rate of 68 O2 sat of 93% on room air. The patient is on atenolol, hydrochlorothiazide, and lisinopril at lower doses. Her blood pressures are well-controlled in her home environment. Patient's last lipids January 2025 total cholesterol 167, HDL 42, LDL 101, and triglycerides 119. Patient had coronary CT calcium scoring done which showed a total Angstrom score of 83 which is less than 100. She had a score of 31 in the circumflex and 52 in the right coronary 0 in the left main and 0 in the LAD. This represents only a mild amount of plaque. Intake Vital Signs 01/05/24 08:30 01/16/25 10:53 Height 5 ft 5 ft Weight: 165 lb BMI 32.2 BP 183/97 H Blood Pressure Location Lt brachial Position Sitting Respiration 18 Pulse 68 Pulse Source Monitor Pulse Oximetry (%) 93 Oxygen Delivery Method room air Intake Visit Reasons: 1 Y FU Reference Assistant Required: No Accompanied by: Self Is patient in pain?: No Allergies No Known Allergies Allergy (Verified 01/16/25 10:53) Medications ???Medication ???Instructions ???Recorded ???Confirmed ???Type aspirin 81 mg tablet,delayed 81 mg PO QDAY 09/06/17 01/16/25 Hi story release (Adult Low Dose Aspirin) cholecalciferol (vitamin D3) 50 2,000 unit PO QDAY #30 tabs 01/16/25 Rx mcg (2,000 unit) tablet hydrochlorothiazide 12.5 mg tablet 12.5 mg PO QDAY #90 tabs 4 01/16/25 Rx lisinopril 2.5 mg tablet 2.5 mg PO DAILY #90 tabs 01/05/24 01/16/25 Rx atenolol 50 mg tablet 50 mg PO QDAY #90 tabs 02/20/24 Rx atorvastatin 40 mg tablet 40 mg PO QHS #90 tabs 04/16/2401/05 Rx calcium carb, citrate, malate mg PO DAILY 01/16/25 01/16/25 Hist ory loratadine 10 mg tablet (Claritin) 10 mg PO QDAY 01/16/25 01/16/25 History Ejection fraction %: 65 Have you fallen in the past year?: No PFSH Medical History Essential hypertension Family history of ischemic heart disease Migraine Hyperlipidemia Surgical History History of left heart catheterization (11/20/03) History of cataract surgery History of hysterectomy Family History Father , Age 59 from [place] CAD (coronary artery disease) Myocardial infarction Brother CAD (coronary artery disease), Onset Age: 47 Stented coronary artery Social History Smoking Status: Never smoker alcohol intake: never substance use type: does not use caffeine: Yes ROS Const Const: Positive for other (intermittent right arm pain since getting blood drawn); Negative for fatigue or weakness ENT ENT: Negative for dizziness or balance problems Cardio Chest Pain: No Palpitations: No Edema: None Muscle aches with walking: None Resp Respiratory: Negative for SOB with activity, SOB at rest or SOB orthopnea SOB lying down GI GI: Negative nausea, vomiting or heartburn Musc Musc: Negative for muscle weakness or balance problems Neuro Neuro: Negative for dizziness, lightheadedness, near syncope, syncope or weakness Endo Endo: Negative for fatigue Cardiology Exam Const Appearance: cooperative, healthy appearing, comfortable and no acute distress Nutritional Appearance: overweight Head Head: normal to inspection Eyes General: appearance normal, both eyes and all related structures Neck Neck: normal visual inspection and no JVD Carotids: Negative bruit Chest Chest inspection: normal inspection of the chest Auscultation: Bilateral: Clear to Auscultation Cardio Rate: regular rate Rhythm: regular rhythm (more content not included)... Normal [facility] Bilirubin directOrdered By: Leah Cisneros on 01-13-2025 Bilirubin.direct [Mass/Vol] 0.26 mg/dL 0.00-0.30 [facility] Bilirubin, totalOrdered By: Leah Cisneros on 01-13-2025 Bilirubin [Mass/Vol] 0.62 mg/dL 0.00-1.30 [facility] Calculated very low density lipoprotein (VLDL) cholesterol measurementOrdered By: Leah Cisneros on 01-13-2025 Calculated very low density lipoprotein (VLDL) cholesterol measurement 24 mg/dL 5-40 [facility] LDL calc ser/plasOrdered By: Leah Cisneros on 01-13-2025 Cholesterol in LDL [Mass/Vol] 101 mg/dL [facility] Comment on above: Erojaopobj=530-120 m g/dL & Higher Jlzk=510 mg/dL or greater Laboratory - Chemistry and C hemistry - challengeOrdered By: Leah Cisneros on 01-13-2025 AST [Catalytic activity/Vol] 26 U/L <32 [facility] Lipid Profileon 01-13-2025 CHOL:HDL 3.97 Normal [facility] Comment on above: Performed By: #### L 500.0516, L500.0761 #### [facility] [address] [place], [address] Cholesterol [Mass/Vol] 167 mg/dL Normal <=200 [facility] Comment on above: Result Comment: Chol esterol level, Desirable <200 mg/dL Borderline high cholesterol 200-239 mg/dL High cholesterol >=240 mg/dL Recommendations of the NCEP Adult Treatment Panel for the following risk-cutoff thresholds for the [place] population. Performed By: #### L 500.3400, L500.4100 #### [facility] [address] [place], [address] Cholesterol in HDL [Mass/Vol] 42 mg/dL Normal [facility] Comment on above: Result Comment: Emelia onal Cholesterol Education Program (NCEP) guidelines: <40 mg/dL: Low HDL-cholesterol (major risk factor for CHD) >= 60 mg/dL: High HDL-cholesterol (negative risk factor for CHD) HDL-cholesterol is affected by a number of factors, e.g. smoking, exercise, hormones, sex and age. Performed By: #### L 500.3400, L500.4100 #### [facility] [address] [place], [address] Cholesterol in LDL [Mass/Vol] 101 mg/dL Normal [facility] Comment on above: Result Comment: Bord qfgbfv=980-019 mg/dL Higher Zipj=909 mg/dL or greater Performed By: #### L 500.3400, L500.4100 #### [facility] [address] [place], [address] Cholesterol in VLDL [Mass/Vol] 24 mg/dL Normal 5-40 [facility] Comment on above: Performed By: #### L 500.3400, L500.4100 #### [facility] [address] [place], [address] Triglyceride [Mass/Vol] 119 mg/dL Normal [facility] Comment on above: Result Comment: The drugs N-Acetylcysteine and Metamizole may falsely depress this assay. Normal range: <150 mg/dL Borderline High: 150-199 mg/dL High: 200-499 mg/dL Very High: >500 mg/dL Performed By: #### L 500.3400, L500.4100 #### [facility] [address] [place], [address] Liver Profileon 01-13-2025 Albumin [Mass/Vol] 4.4 g/dL Normal 3.4-4.8 [facility] Comment on above: Performed By: #### L 500.3400, L500.4100 #### [facility] [address] [place], [address] ALK PHOS 85 U/L Normal 35-104 [facility] Comment on above: Performed By: #### L 500.3400, L500.4100 #### [facility] [address] [place], [address] ALT [Catalytic activity/Vol] 38 U/L High <=34 [facility] Comment on above: Performed By: #### L 500.3400, L500.4100 #### [facility] [address] [place], [address] AST [Catalytic activity/Vol] 26 U/L Normal <=31 [facility] Comment on above: Performed By: #### L 500.3400, L500.4100 #### [facility] [address] [place], [address] Bilirubin [Mass/Vol] 0.62 mg/dL Normal 0.00-1.30 [facility] Comment on above: Performed By: #### L 500.3400, L500.4100 #### [facility] [address] [place], [address] Bilirubin.direct [Mass/Vol] 0.26 mg/dL Normal 0.00-0.30 [facility] Comment on above: Performed By: #### L 500.3400, L500.4100 #### [facility] [address] [place], [address] Globulin (S) [Mass/Vol] 2.2 g/dL Normal 2.2-4.2 [facility] Comment on above: Performed By: #### L 500.3400, L500.4100 #### [facility] [address] [place], [place], [id number] T PROT 6.6 g/dL Normal 5.9-8.4 [facility] Comment on above: Performed By: #### L 500.3400, L500.4100 #### [facility] [address] [place], [place], [id number] Screening total cholesterol/ high density lipoprotein (HDL) cholesterol ratioOrdered By: Leah Cisneros on 01-13-2025 Cholesterol.total/Chol esterol in HDL [Mass ratio] 3.97 {ratio} [facility] Serum globulin measurementOr dered By: Leah Cisneros on 01-13-2025 Globulin (S) [Mass/Vol] 2.2 g/dL 2.2-4.2 [facility] Serum or plasma alanine mills otransferase (ALT) measurementOrdered By: Leah Cisneros on 01-13-2025 ALT [Catalytic activity/Vol] 38 U/L High <35 [facility] Serum or plasma albumin wade urement (mass/volume)Ordered By: Leah Cisneros on 01-13-2025 Albumin [Mass/Vol] 4.4 g/dL 3.4-4.8 [facility] Serum or plasma alkaline kim sphatase measurementOrdered By: Leah Cisneros on 01-13-2025 ALP [Catalytic activity/Vol] 85 U/L 35-104 [facility] Serum or plasma cholesterol in HDL measurement (mass/volume)Ordered By: Leah Cisneros on 01-13-2025 Cholesterol in HDL [Mass/Vol] 42 mg/dL >40 [facility] Comment on above: National Cholesterol Education Program (NCEP) guidelines:<40 mg/dL: Low HDL-cholesterol (major risk factor for CHD)>= 60 mg/dL: High HDL-cholesterol (negative risk factor for CHD)HDL-cholesterol is affected by a number of factors, e.g. smoking, exercise, hormones, sex and age. Serum or plasma cholesterol measurement (mass/volume)Ordered By: Leah Cisneros on 01-13-2025 Cholesterol [Mass/Vol] 167 mg/dL <201 [facility] Comment on above: Cholesterol level, D esirable <200 mg/dLBorderline high cholesterol 200-239 mg/dLHigh cholesterol >=240 mg/dLRecommendations of the NCEP Adult Treatment Panel for the following risk-cutoff thresholds for the [place] population. Total proteinOrdered By: Dale dorian Amelia on 01-13-2025 Protein [Mass/Vol] 6.6 g/dL 5.9-8.4 [facility] Triglycerides measurementOrd ered By: Leah Amelia on 01-13-2025 Triglyceride [Mass/Vol] 119 mg/dL <199 [facility] Comment on above: The drugs N-Acetylcy steine and Metamizole may falsely depress this assay. Normal range: <150 mg/dLBorderline High: 150-199 mg/dLHigh: 200-499 mg/dLVery High: >500 mg/dL BD DXA - AXIAL SKELETONon BD DXA - AXIAL SKELETON * * *Final Report* * * DATE OF EXAM: Sep 23 2024 9:11AM [facility] 0804 - BD DXA - AXIAL SKELETON / PROCEDURE REASON: multiple diagnoses * * * * Physician Interpretation * * * * EXAMINATION: DXA BONE DENSITOMETRY BD DXA - AXIAL SKELETON, BD DXA TRABECLR BONE SCORE (TBS) PATIENT DEMOGRAPHICS: Age: 64 years, Gender: Female SCANNER INFORMATION: DXA Model: [place] [employer] - [employer] C [id number] Date Scanned: 09/23/2024 9:11 AM CLINICAL HISTORY: DIAGNOSTIC Asymptomatic menopause Encounter for screening for osteoporosis Asymptomatic postmenopausal status . RISK FACTORS FOR OSTEOPOROSIS AND ASSOCIATED FRACTURES REPORTED BY THIS PATIENT: Please refer to Bone Health Questionnaire in the EMR CURRENT THERAPY: Please refer to Bone Health Questionnaire in the EMR TECHNICAL LIMITATIONS: None RESULTS: Lumbar spine (L1, L2, L3, L4): 1.063 g/cm2, T-score 0.1, Z-score 1.9 Right Femoral Neck: 0.739 g/cm2, T-score -1.0, Z-score 0.6 Right Total Hip: 0.868 g/cm2, T-score -0.6, Z-score 0.6 Left Femoral Neck: 0.749 g/cm2, T-score -0.9, Z-score 0.6 Left Total Hip: 0.881 g/cm2, T-score -0.5, Z-score 0.8 No comparison data - the patient has not had a previous bone density in the [facility] or the previous bone density was performed on a different DXA machine (new, updated model or different location) within the [facility]. VERTEBRAL FRACTURE ASSESSMENT Not performed. TRABECULAR BONE ASSESSMENT TBS score: 1.337 Bone micro-architecture: Normal (> 1.310) IMPRESSION: THE LOWEST T-SCORE IS -1.0 IN THE RIGHT HIP 1) DIAGNOSIS (based on BMD alone): OSTEOPENIA Caution: Medical conditions other than osteoporosis may cause low bone density, such as osteomalacia or renal osteodystrophy. Clinical correlation is necessary. 2) FRACTURE RISK (Based on TBS adjusted FRAX): 10-year absolute fracture risk: - major osteoporotic fracture = 7.6 % - hip fracture = 0.5 % - A diagnosis of Osteoporosis, a 10 year probability of hip fracture greater than or equal to 3% or a 10 year probability of any major osteoporosis-related fracture greater than or equal to 20% should be considered for treatment. - DXA scanner generated FRAX calculations may slightly differ from online FRAX calculations due to differences in software versions. - All recommendations and calculations are to be considered as guidelines and should not replace sound clinical judgement - Caution: Fracture risk may be increased independent of BMD in patients with corticosteroid use, age greater than 65 years, or a history of prior fragility fracture. RECOMMENDATIONS: Follow-up in 2 years or as clinically indicated. Patients that are taking corticosteroids, are transplant recipients or have hyperparathyroidism should have annual follow-up. Follow-up scans should always be done on the same machine for accurate comparison. FOR MORE INFORMATION ABOUT DIAGNOSIS AND TREATMENT: [facility] Osteoporosis and Metabolic Bone Disease:? www.ccf.org/arthritis/ osteo National Osteoporosis Foundation:? www.nof.org International Society of Clinical Densitometry www.iscd.org Doctor Of Optometry: MARY Transcribe Date/Time: Sep 23 2024 12:12P Dictated by : PILO CARLTON MD This examination was interpreted and the report reviewed and electronically signed by: PILO CARLTON MD on Sep 23 2024 12:14PM EST [id number] -1.0 Normal [facility] BD DXA TRABECLR BONE SCORE ( TBS)on 09-23-2024 BD DXA TRABECLR BONE SCORE (TBS) * * *Final Report* * * DATE OF EXAM: Sep 23 2024 9:11AM [facility] 0801 - BD DXA TRABECLR BONE SCORE (TBS) / PROCEDURE REASON: multiple diagnoses * * * * Physician Interpretation * * * * EXAMINATION: DXA BONE DENSITOMETRY BD DXA - AXIAL SKELETON, BD DXA TRABECLR BONE SCORE (TBS) PATIENT DEMOGRAPHICS: Age: 64 years, Gender: Female SCANNER INFORMATION: DXA Model: [employer] - [employer] C [id number] Date Scanned: 09/23/2024 9:11 AM CLINICAL HISTORY: DIAGNOSTIC Asymptomatic menopause Encounter for screening for osteoporosis Asymptomatic postmenopausal status . RISK FACTORS FOR OSTEOPOROSIS AND ASSOCIATED FRACTURES REPORTED BY THIS PATIENT: Please refer to Bone Health Questionnaire in the EMR CURRENT THERAPY: Please refer to Bone Health Questionnaire in the EMR TECHNICAL LIMITATIONS: None RESULTS: Lumbar spine (L1, L2, L3, L4): 1.063 g/cm2, T-score 0.1, Z-score 1.9 Right Femoral Neck: 0.739 g/cm2, T-score -1.0, Z-score 0.6 Right Total Hip: 0.868 g/cm2, T-score -0.6, Z-score 0.6 Left Femoral Neck: 0.749 g/cm2, T-score -0.9, Z-score 0.6 Left Total Hip: 0.881 g/cm2, T-score -0.5, Z-score 0.8 No comparison data - the patient has not had a previous bone density in the [facility] or the previous bone density was performed on a different DXA machine (new, updated model or different location) within the [facility]. VERTEBRAL FRACTURE ASSESSMENT Not performed. TRABECULAR BONE ASSESSMENT TBS score: 1.337 Bone micro-architecture: Normal (> 1.310) IMPRESSION: THE LOWEST T-SCORE IS -1.0 IN THE RIGHT HIP 1) DIAGNOSIS (based on BMD alone): OSTEOPENIA Caution: Medical conditions other than osteoporosis may cause low bone density, such as osteomalacia or renal osteodystrophy. Clinical correlation is necessary. 2) FRACTURE RISK (Based on TBS adjusted FRAX): 10-year absolute fracture risk: - major osteoporotic fracture = 7.6 % - hip fracture = 0.5 % - A diagnosis of Osteoporosis, a 10 year probability of hip fracture greater than or equal to 3% or a 10 year probability of any major osteoporosis-related fracture greater than or equal to 20% should be considered for treatment. - DXA scanner generated FRAX calculations may slightly differ from online FRAX calculations due to differences in software versions. - All recommendations and calculations are to be considered as guidelines and should not replace sound clinical judgement - Caution: Fracture risk may be increased independent of BMD in patients with corticosteroid use, age greater than 65 years, or a history of prior fragility fracture. RECOMMENDATIONS: Follow-up in 2 years or as clinically indicated. Patients that are taking corticosteroids, are transplant recipients or have hyperparathyroidism should have annual follow-up. Follow-up scans should always be done on the same machine for accurate comparison. FOR MORE INFORMATION ABOUT DIAGNOSIS AND TREATMENT: [facility] Osteoporosis and Metabolic Bone Disease:? www.ccf.org/arthritis/ osteo National Osteoporosis Foundation:? www.nof.org International Society of Clinical Densitometry www.iscd.org Doctor Of Optometry: MARY Transcribe Date/Time: Sep 23 2024 12:12P Dictated by : PILO CARLTON MD This examination was interpreted and the report reviewed and electronically signed by: PILO CARLTON MD on Sep 23 2024 12:14PM EST [id number] -1.0 [facility]INE CAR[facility] ([id number]) 1960 F T Date Time Provider Department 09/23/24 NIA GRIFFIN During your visit today, we recorded the following information about you: Renetta Jeter RN 09/23/2024 1:23 PM Signed Nia Griffin MD P [facility] [employer] Please notify patient of the following: Your bone density results show osteopenia or thinning of the bone. My recommendation is that you get enough calcium (1000 - 1200 mg/day) and Vitamin D (600 - 800 units/day) through your diet and supplements and weight-bearing exercise. We should consider a repeat bone density test in 2-4 years. Renetta Jeter RN 09/23/2024 1:23 PM Signed Left message for patient to call office. LORRAINE Tinoco Trisha, RN 09/23/2024 1:36 PM Signed Patient notified. Renetta Jeter RN Allergies As of Date: 09/23/2024 (No Known Allergies) Date Reviewed: 07/31/2024 Reviewed by: Ines Escobar MA - Fully Assessed Reason for Visit: Results [95] Prescriptions as of 09/23/2024 - atorvastatin (LIPITOR) 40 mg tablet Take 40 mg by mouth daily at bedtime. - lisinopril 2.5 mg tablet Take 2.5 mg by mouth once daily. - loratadine (LORADAMED) 10 mg tablet Take 10 mg by mouth once daily. - hydroCHLOROthiazide (HYDRODIURIL, ESIDRIX) 12.5 mg tablet - atenolol (TENORMIN) 50 mg tablet Take 50 mg by mouth once daily. - aspirin, enteric coated (ASPIRIN, ENTERIC COATED) 81 mg EC tablet Take 81 mg by mouth once daily. - Cholecalciferol, Vitamin D3, 50 mcg (2,000 unit) cap Take by mouth. Problem List As Of Date 09/23/2024 Noted Resolved Unspecified essential hypertension [I10] 06/15/2012 Obesity, Class I, BMI 30-34.9 [E66.811] 04/04/2022 Encounter Status:Closed by RENETTA JETER on 09/23/24 Normal [facility] DXA Femur [T-score] Bone krzysztof lópez 09-23-2024 * * *Final Report* * * DATE OF EXAM: Sep 23 2024 9:11AM [facility] 0801 - BD DXA TRABECLR BONE SCORE (TBS) / PROCEDURE REASON: multiple diagnoses * * * * Physician Interpretation * * * * EXAMINATION: DXA BONE DENSITOMETRY BD DXA - AXIAL SKELETON, BD DXA TRABECLR BONE SCORE (TBS) PATIENT DEMOGRAPHICS: Age: 64 years, Gender: Female SCANNER INFORMATION: DXA Model: [employer] C [id number] Date Scanned: 09/23/2024 9:11 AM CLINICAL HISTORY: DIAGNOSTIC Asymptomatic menopause Encounter for screening for osteoporosis Asymptomatic postmenopausal status . RISK FACTORS FOR OSTEOPOROSIS AND ASSOCIATED FRACTURES REPORTED BY THIS PATIENT: Please refer to Bone Health Questionnaire in the EMR CURRENT THERAPY: Please refer to Bone Health Questionnaire in the EMR TECHNICAL LIMITATIONS: None RESULTS: Lumbar spine (L1, L2, L3, L4): 1.063 g/cm2, T-score 0.1, Z-score 1.9 Right Femoral Neck: 0.739 g/cm2, T-score -1.0, Z-score 0.6 Right Total Hip: 0.868 g/cm2, T-score -0.6, Z-score 0.6 Left Femoral Neck: 0.749 g/cm2, T-score -0.9, Z-score 0.6 Left Total Hip: 0.881 g/cm2, T-score -0.5, Z-score 0.8 No comparison data - the patient has not had a previous bone density in the [facility] or the previous bone density was performed on a different DXA machine (new, updated model or different location) within the [facility]. VERTEBRAL FRACTURE ASSESSMENT Not performed. TRABECULAR BONE ASSESSMENT TBS score: 1.337 Bone micro-architecture: Normal (> 1.310) DIVISION OF RADIOLOGY Provider, [facility] - 09/23/2024 * * *Final Report* * * DATE OF EXAM: Sep 23 2024 9:11AM [facility] 0801 - BD DXA TRABECLR BONE SCORE (TBS) / PROCEDURE REASON: multiple diagnoses * * * * Physician Interpretation * * * * EXAMINATION: DXA BONE DENSITOMETRY BD DXA - AXIAL SKELETON, BD DXA TRABECLR BONE SCORE (TBS) PATIENT DEMOGRAPHICS: Age: 64 years, Gender: Female SCANNER INFORMATION: DXA Model: [employer] - [employer] C [id number] Date Scanned: 09/23/2024 9:11 AM CLINICAL HISTORY: DIAGNOSTIC Asymptomatic menopause Encounter for screening for osteoporosis Asymptomatic postmenopausal status . RISK FACTORS FOR OSTEOPOROSIS AND ASSOCIATED FRACTURES REPORTED BY THIS PATIENT: Please refer to Bone Health Questionnaire in the EMR CURRENT THERAPY: Please refer to Bone Health Questionnaire in the EMR TECHNICAL LIMITATIONS: None RESULTS: Lumbar spine (L1, L2, L3, L4): 1.063 g/cm2, T-score 0.1, Z-score 1.9 Right Femoral Neck: 0.739 g/cm2, T-score -1.0, Z-score 0.6 Right Total Hip: 0.868 g/cm2, T-score -0.6, Z-score 0.6 Left Femoral Neck: 0.749 g/cm2, T-score -0.9, Z-score 0.6 Left Total Hip: 0.881 g/cm2, T-score -0.5, Z-score 0.8 No comparison data - the patient has not had a previous bone density in the [facility] or the previous bone density was performed on a different DXA machine (new, updated model or different location) within the [facility]. VERTEBRAL FRACTURE ASSESSMENT Not performed. TRABECULAR BONE ASSESSMENT TBS score: 1.337 Bone micro-architecture: Normal (> 1.310) IMPRESSION IMPRESSION: THE LOWEST T-SCORE IS -1.0 IN THE RIGHT HIP 1) DIAGNOSIS (based on BMD alone): OSTEOPENIA Caution: Medical conditions other than osteoporosis may cause low bone density, such as osteomalacia or renal osteodystrophy. Clinical correlation is necessary. 2) FRACTURE RISK (Based on TBS adjusted FRAX): 10-year absolute fracture risk: - major osteoporotic fracture = 7.6 % - hip fracture = 0.5 % - A diagnosis of Osteoporosis, a 10 year probability of hip fracture greater than or equal to 3% or a 10 year probability of any major osteoporosis-related fracture greater than or equal to 20% should be considered for treatment. - DXA scanner generated FRAX calculations may slightly differ from online FRAX calculations due to differences in software versions. - All recommendations and calculations are to be considered as guidelines and should not replace sound clinical judgement - Caution: Fracture risk may be increased independent of BMD in patients with corticosteroid use, age greater than 65 years, or a history of prior fragility fracture. RECOMMENDATIONS: Follow-up in 2 years or as clinically indicated. Patients that are taking corticosteroids, are transplant recipients or have hyperparathyroidism should have annual follow-up. Follow-up scans should always be done on the same machine for accurate comparison. FOR MORE INFORMATION ABOUT DIAGNOSIS AND TREATMENT: [facility] Osteoporosis and Metabolic Bone Disease:? www.ccf.org/arthritis/ osteo National Osteoporosis Foundation:? www.nof.org International Society of Clinical Densitometry www.iscd.org Doctor Of Optometry: MARY Transcribe Date/Time: Sep 23 2024 12:12P Dictated by : PILO CARLTON MD This examination was interpreted and the report reviewed and electronically signed by: PILO CARLTON MD on Sep 23 2024 12:14PM EST [facility] DXA Skeletal system.axial Vi ews for bone densityon 09-23-2024 * * *Final Report* * * DATE OF EXAM: Sep 23 2024 9:11AM [facility]804 - BD DXA - AXIAL SKELETON / PROCEDURE REASON: multiple diagnoses * * * * Physician Interpretation * * * * EXAMINATION: DXA BONE DENSITOMETRY BD DXA - AXIAL SKELETON, BD DXA TRABECLR BONE SCORE (TBS) PATIENT DEMOGRAPHICS: Age: 64 years, Gender: Female SCANNER INFORMATION: DXA Model: [employer] - [employer] C [id number] Date Scanned: 09/23/2024 9:11 AM CLINICAL HISTORY: DIAGNOSTIC Asymptomatic menopause Encounter for screening for osteoporosis Asymptomatic postmenopausal status . RISK FACTORS FOR OSTEOPOROSIS AND ASSOCIATED FRACTURES REPORTED BY THIS PATIENT: Please refer to Bone Health Questionnaire in the EMR CURRENT THERAPY: Please refer to Bone Health Questionnaire in the EMR TECHNICAL LIMITATIONS: None RESULTS: Lumbar spine (L1, L2, L3, L4): 1.063 g/cm2, T-score 0.1, Z-score 1.9 Right Femoral Neck: 0.739 g/cm2, T-score -1.0, Z-score 0.6 Right Total Hip: 0.868 g/cm2, T-score -0.6, Z-score 0.6 Left Femoral Neck: 0.749 g/cm2, T-score -0.9, Z-score 0.6 Left Total Hip: 0.881 g/cm2, T-score -0.5, Z-score 0.8 No comparison data - the patient has not had a previous bone density in the [facility] or the previous bone density was performed on a different DXA machine (new, updated model or different location) within the [facility]. VERTEBRAL FRACTURE ASSESSMENT Not performed. TRABECULAR BONE ASSESSMENT TBS score: 1.337 Bone micro-architecture: Normal (> 1.310) DIVISION OF RADIOLOGY Provider, Carlo Meredith - 09/23/2024 * * *Final Report* * * DATE OF EXAM: Sep 23 2024 9:11AM [facility]804 - BD DXA - AXIAL SKELETON / PROCEDURE REASON: multiple diagnoses * * * * Physician Interpretation * * * * EXAMINATION: DXA BONE DENSITOMETRY BD DXA - AXIAL SKELETON, BD DXA TRABECLR BONE SCORE (TBS) PATIENT DEMOGRAPHICS: Age: 64 years, Gender: Female SCANNER INFORMATION: DXA Model: [employer] - [employer] C [id number] Date Scanned: 09/23/2024 9:11 AM CLINICAL HISTORY: DIAGNOSTIC Asymptomatic menopause Encounter for screening for osteoporosis Asymptomatic postmenopausal status . RISK FACTORS FOR OSTEOPOROSIS AND ASSOCIATED FRACTURES REPORTED BY THIS PATIENT: Please refer to Bone Health Questionnaire in the EMR CURRENT THERAPY: Please refer to Bone Health Questionnaire in the EMR TECHNICAL LIMITATIONS: None RESULTS: Lumbar spine (L1, L2, L3, L4): 1.063 g/cm2, T-score 0.1, Z-score 1.9 Right Femoral Neck: 0.739 g/cm2, T-score -1.0, Z-score 0.6 Right Total Hip: 0.868 g/cm2, T-score -0.6, Z-score 0.6 Left Femoral Neck: 0.749 g/cm2, T-score -0.9, Z-score 0.6 Left Total Hip: 0.881 g/cm2, T-score -0.5, Z-score 0.8 No comparison data - the patient has not had a previous bone density in the [facility] or the previous bone density was performed on a different DXA machine (new, updated model or different location) within the [facility]. VERTEBRAL FRACTURE ASSESSMENT Not performed. TRABECULAR BONE ASSESSMENT TBS score: 1.337 Bone micro-architecture: Normal (> 1.310) IMPRESSION IMPRESSION: THE LOWEST T-SCORE IS -1.0 IN THE RIGHT HIP 1) DIAGNOSIS (based on BMD alone): OSTEOPENIA Caution: Medical conditions other than osteoporosis may cause low bone density, such as osteomalacia or renal osteodystrophy. Clinical correlation is necessary. 2) FRACTURE RISK (Based on TBS adjusted FRAX): 10-year absolute fracture risk: - major osteoporotic fracture = 7.6 % - hip fracture = 0.5 % - A diagnosis of Osteoporosis, a 10 year probability of hip fracture greater than or equal to 3% or a 10 year probability of any major osteoporosis-related fracture greater than or equal to 20% should be considered for treatment. - DXA scanner generated FRAX calculations may slightly differ from online FRAX calculations due to differences in software versions. - All recommendations and calculations are to be considered as guidelines and should not replace sound clinical judgement - Caution: Fracture risk may be increased independent of BMD in patients with corticosteroid use, age greater than 65 years, or a history of prior fragility fracture. RECOMMENDATIONS: Follow-up in 2 years or as clinically indicated. Patients that are taking corticosteroids, are transplant recipients or have hyperparathyroidism should have annual follow-up. Follow-up scans should always be done on the same machine for accurate comparison. FOR MORE INFORMATION ABOUT DIAGNOSIS AND TREATMENT: [facility] for Osteoporosis and Metabolic Bone Disease:? www.ccf.org/arthritis/ osteo National Osteoporosis Foundation:? www.nof.org International Society of Clinical Densitometry www.iscd.org Doctor Of Optometry: MARY Transcribe Date/Time: Sep 23 2024 12:12P Dictated by : PILO CARLTON MD This examination was interpreted and the report reviewed and electronically signed by: PILO CARLTON MD on Sep 23 2024 12:14PM [facility] No Panel InformationOrdered By: [facility] Provider on 09-23-2024 LOWEST T-SCORE -[address] [facility] No Panel Informationon 09-23 IMPRESSION: THE LOWEST T-SCORE IS -1.0 IN THE RIGHT HIP 1) DIAGNOSIS (based on BMD alone): OSTEOPENIA Caution: Medical conditions other than osteoporosis may cause low bone density, such as osteomalacia or renal osteodystrophy. Clinical correlation is necessary. 2) FRACTURE RISK (Based on TBS adjusted FRAX): 10-year absolute fracture risk: - major osteoporotic fracture = 7.6 % - hip fracture = 0.5 % - A diagnosis of Osteoporosis, a 10 year probability of hip fracture greater than or equal to 3% or a 10 year probability of any major osteoporosis-related fracture greater than or equal to 20% should be considered for treatment. - DXA scanner generated FRAX calculations may slightly differ from online FRAX calculations due to differences in software versions. - All recommendations and calculations are to be considered as guidelines and should not replace sound clinical judgement - Caution: Fracture risk may be increased independent of BMD in patients with corticosteroid use, age greater than 65 years, or a history of prior fragility fracture. RECOMMENDATIONS: Follow-up in 2 years or as clinically indicated. Patients that are taking corticosteroids, are transplant recipients or have hyperparathyroidism should have annual follow-up. Follow-up scans should always be done on the same machine for accurate comparison. FOR MORE INFORMATION ABOUT DIAGNOSIS AND TREATMENT: [facility] Osteoporosis and Metabolic Bone Disease:? www.ccf.org/arthritis/ osteo National Osteoporosis Foundation:? 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 Marine is a 64 year old who presents for an annual gynecologic exam without complaints. Postmenopausal: Yes HRT use: No. History of abnormal pap: No Last mammogram: 2023 normal History of abnormal mammogram: No Sexually active: Yes History of STDS: None Patient concerns for STD exposure: No. Pain with intercourse: No Postcoital bleeding: No Hot flashes: No Night sweats: No OB History T0 L0 SAB0 IAB0 Ectopic0 Multiple0 Live Births0 Glue Maker History LMP: Hysterectomy Age at Menarche: Age at First : Age at Menopause: Glue Maker History Comments: Sexual Activity: Yes; Male; hysterectomy Contraception: Surgical PAST MEDICAL HISTORY Diagnosis Date Cataracts, bilateral Essential hypertension, benign Headache(784.0) Other and unspecified hyperlipidemia Hyperlipidemia PAST SURGICAL HISTORY Procedure Laterality Date COLONOSCOPY FLX DX W/COLLJ SPEC WHEN PFRMD 12/17/2018 Colonoscopy ESOPG/GSTR TAMPONADE W/BALO SENGSTAKEN TYPE 1979 swallowed object REMOVE CATARACT, INSERT LENS,EX 2012 TOTAL ABDOMINAL HYSTERECT W/WO RMVL TUBE OVARY Hysterectomy, TODD FAMILY HISTORY Problem Relation Age of Onset other (heart attack) Father at age 59 other (heart disease) Brother Hypertension Sister SOCIAL HISTORY Social History Tobacco Use Smoking status: Never Smokeless tobacco: Never Vaping Use Vaping status: Never Used Substance Use Topics Alcohol use: No Drug use: No REVIEW OF SYSTEMS Abdomen: No abdominal pain, nausea, vomiting, diarrhea, or constipation. No bloating, early satiety, indigestion, or increased flatulence. Bladder: No dysuria, gross hematuria, urinary frequency, urinary urgency, or incontinence Breast: No breast lumps, nipple d/c, overlying skin changes, redness or skin retraction Allergies and current medication updated:Yes SENSITIVE EXAM: The sensitive examination was discussed with the Patient or Patient's Authorized Marketing Research Intern. As applicable, any other physician, advance practice provider, medical student, or other health professional student that will be observing or involved in the sensitive examination for educational or training purposes was discussed with the Patient or Authorized Marketing Research Intern. The Patient or Authorized Marketing Research Intern has agreed to proceed with the sensitive examination. (Sensitive examination includes inspection and/or palpation of the breasts, pelvis, prostate and anorectal regions). EXAM: BP 124/64 Ht 5' 0 (1.52m) Wt 162 lb (73.5kg) BMI 31.64 kg/(m2). GENERAL: pleasant, female in no apparent distress HEENT: Normocephalic, atraumatic, mucus membranes moist, and no lesions NECK: Supple, full range of motion, no adenopathy, and thyroid normal DERMATOLOGY: Normal, without lesions, non-icteric, and non-hirsute BREAST: soft, non-tender, symmetric, no dominant mass, normal nipple-areolar complex, no lymphadenopathy, and no nipple discharge ABDOMEN: soft, non-tender, and no masses PELVIC: external genitalia normal, normal Bartholin's glands, urethra, Geiger's glands, no vulvar lesions, good vaginal support, physiologic discharge present, normal appearing perineal body and perianal region, cervix surgically absent BIMANUAL: no adnexal masses, non-tender, and uterus surgically absent RECTOVAGINAL: deferred. NEURO: alert and oriented x3,exam grossly non-focal EXTREMITIES: normal ASSESSMENT/PLAN: 1) Health maintenance: Pap/HPV screening no longer needed Mammogram ordered Mammogram up to date Nutrition, exercise and routine health maintenance exams reviewed. Calcium/Vitamin D supplementation information provided. Colon cancer screening: up to date with screening BMD: ordered 2) Follow up one year or sooner as needed MD Reynaldo Alvarado Deidre, MD 07/31/2024 2:40 PM Signed BONE MINERAL DENSITY PATIENT INSTRUCTIONS Bone mineral density testing measures the amount of calcium in certain parts of your bones. This information determines how strong your bones are. The test is used to detect osteoporosis, a disease in which the bone's mineral content and density are low, increasing a person's risk of fractures. The lumbar spine (lower back) and the hip are the skeletal sites usually examined. For the test, remember that: 1. You cannot take this test if you are . 2. Eat a normal diet on the day of the test. 3. Take your (more content not included)... Normal [facility] Basic Metabolic Profile (BMP )on 06-19-2024 BUN/CRE 21.9 RATIO High 10-20 [facility] Comment on above: Order Comment: BMP,T SH,CBCD FOR VLADIMIR LIVER, LIPID FOR CISNEROS Performed By: #### L 501.9520, L500.2500, L500.3400, L100.0100, L500.4100 #### [facility] [address] [place], [address] CA,Total 9.7 mg/dL Normal 8.5-10.1 [facility] Comment on above: Order Comment: [facility]ADIMIR LIVER, LIPID FOR CISNEROS Performed By: #### L 501.9520, L500.2500, L500.3400, L100.0100, L500.4100 #### [facility] [address] [place], [address] Chloride [Moles/Vol] 106 mmol/L Normal 98-107 [facility] Comment on above: Order Comment: [facility] FOR VLADIMIR LIVER, LIPID FOR CISNEROS Performed By: #### L 501.9520, L500.2500, L500.3400, L100.0100, L500.4100 #### [facility] [address] [place], [address] CO2 [Moles/Vol] 29.0 mmol/L Normal 21.0-32.0 [facility] Comment on above: Order Comment: [facility] FOR VLADIMIR LIVER, LIPID FOR CISNEROS Performed By: #### L 501.9520, L500.2500, L500.3400, L100.0100, L500.4100 #### [facility] [address] [place], [address] Creatinine [Mass/Vol] 0.64 mg/dL Normal 0.55-1.02 [facility] Comment on above: Order Comment: MERYL SH,CBCD FOR VLADIMIR LIVER, LIPID FOR CISNEROS Result Comment: The validity of the calculated GFR GFRAA in patients over 70 years has not been determined. Clinical correlation is essential. Performed By: #### L 501.9520, L500.2500, L500.3400, L100.0100, L500.4100 #### [facility] [address] [place], [address] EST GFR - AA 120 mL/min Normal >60 [facility] Comment on above: Order Comment: MERYL,T SH,CBCD FOR VLADIMIR LIVER, LIPID FOR CISNEROS Result Comment: Afri can Welsh GFR Calc Performed By: #### L 501.9520, L500.2500, L500.3400, L100.0100, L500.4100 #### [facility] [address] [place], [address] GAP 4 Low 5-15 [facility] Comment on above: Order Comment: MERYL,T SH,CBCD FOR VLADIMIR LIVER, LIPID FOR CISNEROS Performed By: #### L 501.9520, L500.2500, L500.3400, L100.0100, L500.4100 #### [facility] [address] [place], [address] GFR/1.73 sq M.predicted among non-blacks MDRD (S/P/Bld) [Vol rate/Area] 99 mL/min/{1.73_m2} Normal >60 [facility] Comment on above: Order Comment: MERYL,T SH,CBCD FOR VLADIMIR LIVER, LIPID FOR CISNEROS Result Comment: Non- GFR Calc Performed By: #### L 501.9520, L500.2500, L500.3400, L100.0100, L500.4100 #### [facility] [address] [place], [address] Glucose [Mass/Vol] 94 mg/dL Normal 74-106 [facility] Comment on above: Order Comment: MERYL,T SH,CBCD FOR VLADIMIR LIVER, LIPID FOR CISNEROS Performed By: #### L 501.9520, L500.2500, L500.3400, L100.0100, L500.4100 #### [facility] [address] [place], [address] Potassium [Moles/Vol] 4.1 mmol/L Normal 3.5-5.1 [facility] Comment on above: Order Comment: MERYL,T ,CBCD FOR VLADIMIR LIVER, LIPID FOR CISNEROS Performed By: #### L 501.9520, L500.2500, L500.3400, L100.0100, L500.4100 #### [facility] [address] [place], [address] Sodium [Moles/Vol] 140 mmol/L Normal 136-145 [facility] Comment on above: Order Comment: MERYL,T ,CBCD FOR VLADIMIR LIVER, LIPID FOR CISNEROS Performed By: #### L 501.9520, L500.2500, L500.3400, L100.0100, L500.4100 #### [facility] [address] [place], [address] Urea nitrogen [Mass/Vol] 14 mg/dL Normal 7-18 [facility] Comment on above: Order Comment: MERYL,T ,CBCD FOR VLADIMIR LIVER, LIPID FOR CISNEROS Performed By: #### L 501.9520, L500.2500, L500.3400, L100.0100, L500.4100 #### [facility] [address] [place], [address] CBC W/Diff, Automatedon 11-0 -2023 Absolute Lymph 2.41 X10 3/uL Normal 0.83-4.51 [facility] Comment on above: Order Comment: MERYL,T SH,CBCD FOR VLADIMIR LIVER, LIPID FOR CISNEROS Performed By: #### L 501.9520, L500.2500, L500.3400, L100.0100, L500.4100 #### [facility] [address] [place], [address] Absolute Neut 4.6 X10 3/uL Normal 2.0-7.7 [facility] Comment on above: Order Comment: BMP,T SH,CBCD FOR VLADIMIR LIVER, LIPID FOR CISNEROS Performed By: #### L 501.9520, L500.2500, L500.3400, L100.0100, L500.4100 #### [facility] [address] [place], [address] Basophils/100 WBC (Bld) 0.9 % Normal 0-1 [facility] Comment on above: Order Comment: BMP,T SH,CBCD FOR VLADIMIR LIVER, LIPID FOR CISNEROS Performed By: #### L 501.9520, L500.2500, L500.3400, L100.0100, L500.4100 #### [facility] [address] [place], [address] Eosinophils/100 WBC (Bld) 3.5 % Normal 0-5 [facility] Comment on above: Order Comment: BMP,T SH,CBCD FOR VLADIMIR LIVER, LIPID FOR CISNEROS Performed By: #### L 501.9520, L500.2500, L500.3400, L100.0100, L500.4100 #### [facility] [address] [place], [address] Erythrocyte distribution width (RBC) [Ratio] 12.7 % Normal 11.6-14.6 [facility] Comment on above: Order Comment: BMP,T SH,CBCD FOR VLADIMRI LIVER, LIPID FOR CISNEROS Performed By: #### L 501.9520, L500.2500, L500.3400, L100.0100, L500.4100 #### [facility] [address] [place], [address] Hematocrit (Bld) [Volume fraction] 43.9 % Normal 37-47 [facility] Comment on above: Order Comment: BMP,T SH,CBCD FOR VLADIMIR LIVER, LIPID FOR CISNEROS Performed By: #### L 501.9520, L500.2500, L500.3400, L100.0100, L500.4100 #### [facility] [address] [place], [address] Hemoglobin (Bld) [Mass/Vol] 14.8 g/dL Normal 12.0-15.0 [facility] Comment on above: Order Comment: MERYLT ,CBCD FOR VLADIMIR LIVER, LIPID FOR CISNEROS Performed By: #### L 501.9520, L500.2500, L500.3400, L100.0100, L500.4100 #### [facility] [address] [place], [address] IG% 0.600 Normal 0.0-0.9 [facility] Comment on above: Order Comment: MERYLT ,CBCD FOR VLADIMIR LIVER, LIPID FOR CISNEROS Result Comment: IG% - Immature Granulocytes (promyelocytes, myelocytes and metamyelocytes) > 1% indicates that a LEFT SHIFT is Present. Performed By: #### L 501.9520, L500.2500, L500.3400, L100.0100, L500.4100 #### [facility] [address] [place], [address] Lymphocytes/100 WBC (Bld) 30.4 % Normal 19-41 [facility] Comment on above: Order Comment: MERYLT ,CBCD FOR VLADIMIR LIVER, LIPID FOR CISNEROS Performed By: #### L 501.9520, L500.2500, L500.3400, L100.0100, L500.4100 #### [facility] [address] [place], [address] MCH (RBC) [Entitic mass] 30.6 pg Normal 27.0-32.0 [facility] Comment on above: Order Comment: MERYL,T ,CBCD FOR VLADIMIR LIVER, LIPID FOR CISNEROS Performed By: #### L 501.9520, L500.2500, L500.3400, L100.0100, L500.4100 #### [facility] [address] [place], [address] MCHC (RBC) [Mass/Vol] 33.7 g/dL Normal 32-36 [facility] Comment on above: Order Comment: BMP,T SH,CBCD FOR VLADIMIR LIVER, LIPID FOR CISNEROS Performed By: #### L 501.9520, L500.2500, L500.3400, L100.0100, L500.4100 #### [facility] [address] [place], [address] MCV (RBC) [Entitic vol] 90.7 fL Normal 81-99 [facility] Comment on above: Order Comment: BMP,T SH,CBCD FOR VLADIMIR LIVER, LIPID FOR CISNEROS Performed By: #### L 501.9520, L500.2500, L500.3400, L100.0100, L500.4100 #### [facility] [address] [place], [address] Monocytes/100 WBC (Bld) 6.3 % Normal 0-10 [facility] Comment on above: Order Comment: BMP,T SH,CBCD FOR VLADIMIR LIVER, LIPID FOR CISNEROS Performed By: #### L 501.9520, L500.2500, L500.3400, L100.0100, L500.4100 #### [facility] [address] [place], [address] Neutrophils/100 WBC (Bld) 58.3 % Normal 47-70 [facility] Comment on above: Order Comment: BMP,T SH,CBCD FOR VLADIMIR LIVER, LIPID FOR CISNEROS Performed By: #### L 501.9520, L500.2500, L500.3400, L100.0100, L500.4100 #### [facility] [address] [place], [address] Nucleated RBC (Bld) [#/Vol] 0 10*3/uL Normal 0-5 [facility] Comment on above: Order Comment: MERYLT SH,CBCD FOR VLADIMIR LIVER, LIPID FOR CISNEROS Performed By: #### L 501.9520, L500.2500, L500.3400, L100.0100, L500.4100 #### [facility] [address] [place], [address] Platelet mean volume (Bld) [Entitic vol] 10.2 fL Normal 6.2-12.0 [facility] Comment on above: Order Comment: MERYL,T SH,CBCD FOR VLADIMIR LIVER, LIPID FOR CISNEROS Performed By: #### L 501.9520, L500.2500, L500.3400, L100.0100, L500.4100 #### [facility] [address] [place], [address] Platelets (Bld) [#/Vol] 269 10*3/uL Normal 150-450 [facility] Comment on above: Order Comment: MERYL,T SH,CBCD FOR VLADIMIR LIVER, LIPID FOR CISNEROS Performed By: #### L 501.9520, L500.2500, L500.3400, L100.0100, L500.4100 #### [facility] [address] [place], [address] RBC (Bld) [#/Vol] 4.84 10*6/uL Normal 4.2-5.4 [facility] Comment on above: Order Comment: MERYL,T SH,CBCD FOR VLADIMIR LIVER, LIPID FOR CISNEROS Performed By: #### L 501.9520, L500.2500, L500.3400, L100.0100, L500.4100 #### [facility] [address] [place], [address] RDW SD 42.1 fl Normal 35.1-43.9 [facility] Comment on above: Order Comment: MERYL,T SH,CBCD FOR VLADIMIR LIVER, LIPID FOR CISNEROS Performed By: #### L 501.9520, L500.2500, L500.3400, L100.0100, L500.4100 #### [facility] [address] [place], [address] WBC (Bld) [#/Vol] 7.9 10*3/uL Normal 4.4-11.0 [facility] Comment on above: Order Comment: MERYL,T ,CBCD FOR VLADIMIR LIVER, LIPID FOR CISNEROS Performed By: #### L 501.9520, L500.2500, L500.3400, L100.0100, L500.4100 #### [facility] [address] [place], [address] Lipid Profileon 06-19-2024 Cholesterol [Mass/Vol] 168 mg/dL Normal 200 [facility] Comment on above: Order Comment: MERYL,[facility],CBCD FOR VLADIMIR LIVER, LIPID FOR CISNEROS Result Comment: <200 mg/dL Desirable 200-240 mg/dL Borderline >240 mg/dL High Risk Performed By: #### L 501.9520, L500.2500, L500.3400, L100.0100, L500.4100 #### [facility] [address] [place], [address] Cholesterol in HDL [Mass/Vol] 46 mg/dL Normal [facility] Comment on above: Order Comment: [facility],CBCD FOR VLADIMIR LIVER, LIPID FOR CISNEROS Result Comment: The drugs N-Acetylcysteine and Metamizole may falsely depress this assay. Reference Range HDL <40 mg/dL Low HDL Cholesterol HDL >or= 60 mg/dL High HDL Cholesterol Performed By: #### L 501.9520, L500.2500, L500.3400, L100.0100, L500.4100 #### [facility] [address] [place], [address] Cholesterol in LDL [Mass/Vol] 98 mg/dL Normal 0-130 [facility] Comment on above: Order Comment: MERYLT SH,CBCD FOR VLADIMIR LIVER, LIPID FOR CISNEROS Performed By: #### L 501.9520, L500.2500, L500.3400, L100.0100, L500.4100 #### [facility] [address] [place], [address] Cholesterol in VLDL [Mass/Vol] 24 mg/dL Normal 5-40 [facility] Comment on above: Order Comment: MERYLT SH,CBCD FOR VLADIMIR LIVER, LIPID FOR CISNEROS Performed By: #### L 501.9520, L500.2500, L500.3400, L100.0100, L500.4100 #### [facility] [address] [place], [place], [id number] Triglyceride [Mass/Vol] 118 mg/dL Normal [facility] Comment on above: Order Comment: MERYLT SH,CBCD FOR VLADIMIR LIVER, LIPID FOR CISNEROS Result Comment: The drugs N-Acetylcysteine and Metamizole may falsely depress this assay. Serum Triglycerides Reference Interval Normal <150 mg/dL Borderline high 150 - 199 mg/dL High 200 - 499 mg/dL Very High > or = 500 mg/dL Performed By: #### L 501.9520, L500.2500, L500.3400, L100.0100, L500.4100 #### [facility] [address] [place], [address] Liver Profileon 06-19-2024 Albumin [Mass/Vol] 4.0 g/dL Normal 3.2-5.0 [facility] Comment on above: Order Comment: MERYL,T SH,CBCD FOR VLADIMIR LIVER, LIPID FOR CISNEROS Performed By: #### L 501.9520, L500.2500, L500.3400, L100.0100, L500.4100 #### [facility] [address] [place], [address] ALK P 91 U/L Normal 45-117 [facility] Comment on above: Order Comment: MERYLT SH,CBCD FOR VLADIMIR LIVER, LIPID FOR CISNEROS Performed By: #### L 501.9520, L500.2500, L500.3400, L100.0100, L500.4100 #### [facility] [address] [place], [address] ALT [Catalytic activity/Vol] 44 U/L Normal 13-56 [facility] Comment on above: Order Comment: MERYLT ,CBCD FOR VLADIMIR LIVER, LIPID FOR CISNEROS Performed By: #### L 501.9520, L500.2500, L500.3400, L100.0100, L500.4100 #### [facility] [address] [place], [address] AST [Catalytic activity/Vol] 25 U/L Normal 15-37 [facility] Comment on above: Order Comment: MERYLT ,CBCD FOR VLADIMIR LIVER, LIPID FOR CISNEROS Performed By: #### L 501.9520, L500.2500, L500.3400, L100.0100, L500.4100 #### [facility] [address] [place], [address] Bilirubin [Mass/Vol] 0.90 mg/dL Normal 0.20-1.00 [facility] Comment on above: Order Comment: MERYLT SH,CBCD FOR VLADIMIR LIVER, LIPID FOR CISNEROS Result Comment: For patients on eltrombopag therapy, use of Dimension [place] TBIL is not recommended. Performed By: #### L 501.9520, L500.2500, L500.3400, L100.0100, L500.4100 #### [facility] [address] [place], [address] Bilirubin.direct [Mass/Vol] 0.25 mg/dL Normal 0.00-0.30 [facility] Comment on above: Order Comment: MERYL,T SH,CBCD FOR VLADIMIR LIVER, LIPID FOR CISNEROS Performed By: #### L 501.9520, L500.2500, L500.3400, L100.0100, L500.4100 #### [facility] [address] [place], [address] Globulin (S) [Mass/Vol] 2.7 g/dL Normal 2.2-4.2 [facility] Comment on above: Order Comment: MERYL,T SH,CBCD FOR VLADIMIR LIVER, LIPID FOR CISNEROS Performed By: #### L 501.9520, L500.2500, L500.3400, L100.0100, L500.4100 #### [facility] [address] [place], [address] T PROT 6.7 g/dL Normal 6.4-8.2 [facility] Comment on above: Order Comment: MERYL,T SH,CBCD FOR VLADIMIR LIVER, LIPID FOR CISNEROS Performed By: #### L 501.9520, L500.2500, L500.3400, L100.0100, L500.4100 #### [facility] [address] [place], [address] Thyroid Stim Hormone (TSH)on 06-19-2024 TSH 0.617 uIU/mL Normal 0.358-3.740 [facility] Comment on above: Order Comment: MERYL,T SH,CBCD FOR VLADIMIR LIVER, LIPID FOR CISNEROS Performed By: #### L 501.9520, L500.2500, L500.3400, L100.0100, L500.4100 #### [facility] [address] [place], [address] DBT Breast - bilateral scree tami 05-17-2024 IMPRESSION: There is no mammographic evidence of malignancy in either breast. Routine follow-up mammogram in 1 year is recommended. BI-RADS Category 1: Negative RISK: Based on the Tyrer-Cuzick (TC) risk assessment model, this patient has a 8.4% lifetime risk of developing breast cancer, meaning they are at average risk for developing breast cancer. However, this is only an estimate based on available history provided on the patient's questionnaire. We encourage all patients talk with their providers about these results, further recommendations for managing breast health, and appropriate supplemental screening options if the patient has dense breast tissue. Interpreting Radiologist: Chloe Ramos M.D. Electronically signed on: 05/17/2024 Doctor Of Optometry: PHILLIP Transcribe Date/Time: May 16 2024 10:54A Dictated by: CHLOE RAMOS MD This examination was interpreted and the report reviewed and electronically signed by: CHLOE RAMOS MD on May 17 2024 7:25AM [facility] DIVISION OF RADIOLOGY * * *Final Report* * * DATE OF EXAM: May 16 2024 11:11AM [facility] SCREENING W OSMAN / PROCEDURE REASON: Encounter for screening mammogram for malignant neoplasm of breast * * * * Physician Interpretation * * * * RESULT: [address] [address] HISTORY: Patient is 64 years old and is seen for screening and is asymptomatic in both breasts. COMPARISON STUDIES: Comparison is made to exams dating back to: 2020. MAMMOGRAM TECHNIQUE: The study was acquired using full field digital technology and interpreted from soft copy. Digital Breast Tomosynthesis (DBT) images were obtained and used to assist in the interpretation of this examination. Computer-aided detection was utilized by the radiologist in the interpretation of this examination. MAMMOGRAM FINDINGS: The breasts are heterogeneously dense, which may obscure small masses. No suspicious masses, calcifications or other abnormalities are seen in either breast. DIVISION OF RADIOLOGY Provider, [facility] - 05/17/2024 * * *Final Report* * * DATE OF EXAM: May 16 2024 11:11AM [facility] SCREENING W OSMAN / PROCEDURE REASON: Encounter for screening mammogram for malignant neoplasm of breast * * * * Physician Interpretation * * * * RESULT: [facility] [address] [place] [address] HISTORY: Patient is 64 years old and is seen for screening and is asymptomatic in both breasts. COMPARISON STUDIES: Comparison is made to exams dating back to: 2020. MAMMOGRAM TECHNIQUE: The study was acquired using full field digital technology and interpreted from soft copy. Digital Breast Tomosynthesis (DBT) images were obtained and used to assist in the interpretation of this examination. Computer-aided detection was utilized by the radiologist in the interpretation of this examination. MAMMOGRAM FINDINGS: The breasts are heterogeneously dense, which may obscure small masses. No suspicious masses, calcifications or other abnormalities are seen in either breast. IMPRESSION IMPRESSION: There is no mammographic evidence of malignancy in either breast. Routine follow-up mammogram in 1 year is recommended. BI-RADS Category 1: Negative RISK: Based on the Tyrer-Cuzick (TC) risk assessment model, this patient has a 8.4% lifetime risk of developing breast cancer, meaning they are at average risk for developing breast cancer. However, this is only an estimate based on available history provided on the patient's questionnaire. We encourage all patients talk with their providers about these results, further recommendations for managing breast health, and appropriate supplemental screening options if the patient has dense breast tissue. Interpreting Radiologist: Chloe Ramos M.D. Electronically signed on: 05/17/2024 Doctor Of Optometry: PHILLIP Transcrilucinda Date/Time: May 16 2024 10:54A Dictated by: CHLOE RAMOS MD This examination was interpreted and the report reviewed and electronically signed by: CHLOE RAMOS MD on May 17 2024 7:25AM EST [facility] DBT Breast - bilateral scree ningOrdered By: Ccf Provider on 05-17-2024 [facility] DBT Breast - bilateral scree syedagon 05-16-2024 Radiology Study observation (narrative) [facility] Coronary Angiography CTon Coronary Angiography CT [facility] Imaging Services [address] [place] [address] 04/16/24 0638 MR#: [id number] Acct: [id number] Name: MARINE CARTER Rep #: [id number] : 1960 64 From: Rod Angel MD PCP: Dr. Luis Miguel Gilbert DO Status:REG CLI Y Location: CT Calcium Scoring Date of Study:: 04/11/24 Indications Indications: Hypertension Coronary Calcium Scoring: High-resolution Computed Tomographic imaging of the chest was performed on [04/11/2024], with particular attention paid to the coronary arteries. Images from the examination were analyzed for the presence and extent of coronary artery calcification , using coronary calcium quantification software. The patient tolerated the procedure well and there were no complications. The results of the coronary calcification analysis are provided below. Findings Coronary Artery Left Main (LM): 0 Left Anterior Descending (LAD): 0 Left Circumflex (LCX): 31 Right Coronary Artery (RCA): 52.3 Total Agatston Score: 83.3 Percentile Rankin-75th percentile Calcium Scoring Interpretation: Different methods to categorize the overall amount of coronary plaque. Overall amount CAC SIS Visual of coronary plaque P1 Mild -100 <2 1-2 vessels with mild amount of plaque P2 Moderate 101-300 3-4 1-2 vessels with moderate amount, 3 vessels with mild amount of plaque P3 Severe 301-999 5-7 3 vessels with moderate amount, 1 vessel with severe amount of plaque P4 Extensive >1000 >8 2-3 vessels with severe amount of plaque Calcium Score: Mild: 1-2 vessels w/mild amount of plaque Conclusion: Mild atherosclerotic plaquing noted in the right coronary artery. 04/16/24 0639 Date Rod Angel MD Cosigner Signature (if applicable): Date CC: Dr. Rod Angel MD; Dr. Luis Miguel Gilbert DO; ABDELRAHMAN Sorto Signed Normal [facility] Limited Chest CT Cardiac Onl yon 04-11-[address] Cardiac Only [facility] Imaging Services [address] [place] [id number] Cardiac Only MR#: [id number] Acct: [id number] Name: MARINE CARTER Rep #: [id number] : 1960 F 64 From: Vaibhav saha MD PCP: Dr. Luis Miguel Gilbert DO Status: REG CLI Study: Limited Chest CT Cardiac Only Date of Exam: Exam# [id number] Ordering Dr: Leah Cisneros [id number] STUDY: CT CHEST WITHOUT CONTRAST REASON FOR EXAM: Female, 64 years old. HTN RADIATION DOSAGE (If Supplied By Facility): CTDIvol = ( 12.19 ) mGy, DLP = ( 195.04 ) mGycm TECHNIQUE: Transaxial imaging was performed without the administration of intravenous contrast material. Cardiac over read examination. Individualized dose optimization techniques were used for this CT. COMPARISON: No relevant priors. FINDINGS: CHEST Minimal linear scarring along the anterior medial aspect of the right middle lobe and lingular segment of the left upper lobe. There is no demonstrated pleural abnormality. There are calcifications of the coronary arteries. Normal mediastinum. Normal hilar regions. Normal unenhanced pulmonary arteries. There is atherosclerotic calcification of the aortic arch. Normal osseous structures. There is no demonstrated abnormality of the visualized upper abdomen. CT/Limited Chest CT Cardiac Only IMPRESSION: Coronary artery calcification. Mild linear scarring along the anterior medial aspect of the right middle lobe and lingular segment of the left upper. Electronically Signed: Vaibhav Leos MD at 14:10 EDT , CC: Dr. Luis Miguel Gilbert DO; ABDELRAHMAN Sorto Doctor Of Optometry: Signed Normal [facility] Basophil percentageOrdered B y: Leah Cisneros on 11-26-2022 Bilirubin [Mass/Vol] 0.70 mg/dL 0.20-1.00 [facility] Comment on above: For patients on eltr ombopag therapy, use of Dimension [place] TBIL is not recommended. Cholesterol [Mass/Vol] 180 mg/dL <200 [facility] Comment on above: <200 mg/dL Desirable 200-240 mg/dL Borderline >240 mg/dL High Risk Protein [Mass/Vol] 6.8 g/dL 6.4-8.2 [facility] Triglyceride [Mass/Vol] 117 mg/dL <199 [facility] Comment on above: The drugs N-Acetylcy steine and Metamizole may falsely depress this assay.Serum Triglycerides Reference Interval Normal <150 mg/dL Borderline high 150 - 199 mg/dL High 200 - 499 mg/dL Very High > or = 500 mg/dL Direct bilirubinOrdered By: Leah Cisneros on 11-26-2022 Bilirubin.direct [Mass/Vol] 0.25 mg/dL 0.00-0.30 [facility] Laboratory - Chemistry and C hemistry - challengeOrdered By: Leah Cisneros on 11-26-2022 ALP [Catalytic activity/Vol] 73 U/L 45-117 [facility] ALT [Catalytic activity/Vol] 59 U/L 13-56 [facility] Globulin (S) [Mass/Vol] 2.7 g/dL 2.2-4.2 [facility] Serum or plasma albumin wade urement (mass/volume)Ordered By: Leah Cisneros on 11-26-2022 Albumin [Mass/Vol] 4.1 g/dL 3.2-5.0 [facility] Serum or plasma cholesterol in HDL measurement (mass/volume)Ordered By: Leah Cisneros on 11-26-2022 Cholesterol in HDL [Mass/Vol] 43 mg/dL >40 [facility] Comment on above: The drugs N-Acetylcy steine and Metamizole may falsely depress this assay. Reference Range HDL <40 mg/dL Low HDL Cholesterol HDL >or= 60 mg/dL High HDL Cholesterol Serum or plasma cholesterol in VLDL measurement (mass/volume)Ordered By: Leah Cisneros on 11-26-2022 Cholesterol in VLDL [Mass/Vol] 23 mg/dL 5-40 [facility] Serum or plasma low density lipoprotein (LDL) cholesterol measurement (mass/volume)Ordered By: Leah Cisneros on 11-26-2022 Cholesterol in LDL [Mass/Vol] 114 mg/dL 0-130 [facility] Thin prep Papanicolaou smear with manual screeningOrdered By: Leah Cisneros on 11-26-2022 Thin prep Papanicolaou smear with manual screening 32 U/L 15-37 [facility] MANNY SCREENING W TOMOon 04-04 [facility] Lab Report: Lipid Profileon 07-29-2017 Cholesterol 168 mg/dL Invalid Interpretation Code 200 [employer] Work Phone: [phone] HDL Cholesterol 46 mg/dL Invalid Interpretation Code [employer] Work Phone: [phone] LDL Cholesterol 105 mg/dL Invalid Interpretation Code 0-130 [employer] Work Phone: [phone] Triglyceride 83 mg/dL Invalid Interpretation Code [employer] Work Phone: [phone] very low density lipoproteins 17 mg/dL Invalid Interpretation Code 5-40 [employer] Work Phone: [phone] Lab Report: Liver Profileon 07-29-2017 Alanine aminotransferase (ALT) 49 U/L Invalid Interpretation Code 1278 [employer] Work Phone: [phone] Albumin 4.3 g/dL Invalid Interpretation Code 3.4-5.0 [employer] Work Phone: [phone] Alkaline phosphatase (ALP) 69 U/L Invalid Interpretation Code 45-117 [employer] Work Phone: [phone] Aspartate aminotransferase (AST) 26 U/L Invalid Interpretation Code 15-37 [employer] Work Phone: [phone] Bilirubin (direct) 0.22 mg/dL Invalid Interpretation Code 0.00-0.30 [employer] Work Phone: [phone] Bilirubin (total) 0.90 mg/dL Invalid Interpretation Code 0.20-1.00 [employer] Work Phone: [phone] Globulin 3.2 g/dL Invalid Interpretation Code 2.2-4.2 [facility] Work Phone: [phone] Protein 7.5 g/dL Invalid Interpretation Code 6.4-8.2 [facility] Work Phone: [phone] Office Visit: Max 02-28-20 17 Documentation of current medications (procedure) Done Invalid Interpretation Code [facility] Work Phone: [phone] Fall risk assessment No Invalid Interpretation Code [facility] Work Phone: [phone] Protein mass conc Done [facility] Work Phone: [phone] Lab Report: Bilirubin, Direc ton 01-26-2017 Bilirubin (direct) 0.20 mg/dL Invalid Interpretation Code 0.00-0.30 [facility] Work Phone: [phone] Lab Report: Comprehensive Me tabolic Profilon 01-26-2017 Alanine aminotransferase (ALT) 45 U/L Invalid Interpretation Code 12-78 [employer] Work Phone: [phone] Albumin 4.1 g/dL Invalid Interpretation Code 3.4-5.0 [facility] Work Phone: [phone] Albumin/Globulin Ratio 1.5 {ratio} Invalid Interpretation Code 0.9-2.4 [facility] Work Phone: [phone] Alkaline phosphatase (ALP) 63 U/L Invalid Interpretation Code 45-117 [facility] Work Phone: [phone] ALP enzyme act/vol (Bld) 63 U/L 45-117 [facility] Work Phone: [phone] Anion gap 7 mmol/L Invalid Interpretation Code 5-15 [facility] Work Phone: [phone] Anion gap molar conc 7 mmol/L 5-[address] [facility] [address] [facility] Work Phone: [phone] Aspartate aminotransferase (AST) 21 U/L Invalid Interpretation Code 15-37 [facility] Work Phone: [phone] Bilirubin (total) 0.80 mg/dL Invalid Interpretation Code 0.20-1.00 [facility] Work Phone: [phone] BUN/Creatinine Ratio 21.7 RATIO High 10-[address] [facility] [address] [facility] Work Phone: [phone] Calcium 9.3 mg/dL Invalid Interpretation Code 8.5-10.1 [facility] Work Phone: [phone] Chloride 106 mmol/L Invalid Interpretation Code 98-107 [facility] Work Phone: [phone] CO2 30.0 mmol/L Invalid Interpretation Code 21.0-32.0 [facility] Work Phone: [phone] CO2 ppres (BldV) 30.0 mmol/L 21.0-32.0 [facility] Work Phone: [phone] Creatinine 0.60 mg/dL Invalid Interpretation Code 0.55-1.02 [facility] Work Phone: [phone] eGFR (non-black) 133 mL/min/{1.73_m2} Invalid Interpretation Code >60 [facility] Work Phone: [phone] eGFR (non-black) 110 mL/min/{1.73_m2} Invalid Interpretation Code >60 [facility] Work Phone: [phone] EST GFR - AA 133 mL/min >60 [facility] Work Phone: [phone] Globulin 2.7 g/dL Invalid Interpretation Code 2.3-3.5 [facility] Work Phone: [phone] Globulin mass conc (S) 2.7 g/dL 2.3-3.5 [facility] Work Phone: [phone] Glucose 83 mg/dL Invalid Interpretation Code 70-110 [facility] Work Phone: [phone] Glucose mass conc 83 mg/dL 70-110 [facility] Work Phone: [phone] Potassium 3.9 mmol/L Invalid Interpretation Code 3.5-5.1 [facility] Work Phone: [phone] Protein 6.8 g/dL Invalid Interpretation Code 6.4-8.2 [facility] Work Phone: [phone] Sodium 143 mmol/L Invalid Interpretation Code 136-145 [facility] Work Phone: [phone] Urea nitrogen 13 mg/dL Invalid Interpretation Code 7-18 [facility] Work Phone: [phone] Lab Report: Lipid Profileon 01-26-2017 Cholesterol 151 mg/dL Invalid Interpretation Code 200 [facility] Work Phone: [phone] HDL Cholesterol 44 mg/dL Invalid Interpretation Code [facility] Work Phone: [phone] LDL Cholesterol 96 mg/dL Invalid Interpretation Code 0-130 [facility] Work Phone: [phone] Triglyceride 57 mg/dL Invalid Interpretation Code [facility] Work Phone: [phone] very low density lipoproteins 11 mg/dL Invalid Interpretation Code 5-40 [facility] Work Phone: [phone] Lab Report: T4 Free Directon 01-26-2017 Thyroxine (T4) free 1.20 ng/dL Invalid Interpretation Code 0.76-1.46 [facility] Work Phone: [phone]) Lab Report: Thyroid Stim Hor shasha (TSH)on 01-26-2017 Thyroid stimulating hormone (TSH) 0.40 u[iU]/mL Invalid Interpretation Code 0.358-3.74 [facility] Work Phone: [phone] Office Visiton 02-29-2016 Documentation of current medications (procedure) Done Invalid Interpretation Code [facility] Work Phone: [phone] Protein mass conc Done [facility] Work Phone: [phone] Tobacco smoking status [facility] Tobacco smoking status [facility] Invalid Interpretation Code [facility] Work Phone: [phone] Tobacco smoking status [facility] Never smoker [facility] Work Phone: [phone] Tobacco use 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 % Invalid Interpretation Code [facility] Work Phone: [phone] Clinical Lists Update: Prelo 02-18-2016 Globulin 2.7 g/dL Invalid Interpretation Code [facility] Work Phone: [phone] Globulin mass conc (S) 2.7 g/dL [facility] Work Phone: [phone] Office Visiton 02-17-2015 Dietary management education, guidance, and counseling (procedure) yes Invalid Interpretation Code [facility] Work Phone: [phone] External Other: Preferred Me thod of Contacton 01-19-2015 methcontact secmsg [employer] Work Phone: [phone] Patient's prefered method of contact secmsg Invalid Interpretation Code [employer] [facility] Phone: [phone] Office Visiton 01-19-2015 cardiac risk group B Invalid Interpretation Code [employer] [facility] Phone: [phone] General cardiovascular disease 10Y risk [#] [place]'Andreina 11 % Invalid Interpretation Code [employer] Work Phone: [phone] Replaced Document: Gayathri E CG Observationson 01-19-2015 EKG QRS axis 31 deg [employer] Work Phone: [phone] electrocardiogram interpretation Sinus Rhythm WITHIN NORMAL LIMITS Invalid Interpretation Code [employer] [facility] Phone: [phone] GE use only - for [employer] import when terms are not otherwise specified 410 ms Invalid Interpretation Code [facility] Phone: [phone] Interpretation Sinus Rhythm WITHIN NORMAL LIMITS [employer] Work Phone: [phone] P Kempner 27 deg [employer] Work Phone: [phone] P wave axis, electrocardiogram 27 deg Invalid Interpretation Code [facility] Phone: [phone] ID Interval 136 ms [employer] Work Phone: [phone] ID interval, electrocardiogram 136 ms Invalid Interpretation Code [employer] [facility] Phone: [phone] Pulse (Heart Rate) 60 /min Invalid Interpretation Code [employer] Work Phone: [phone] QRS axis, electrocardiogram 31 deg Invalid Interpretation Code [facility] Phone: [phone] QRS Duration 94 ms [employer] Work Phone: [phone] QRS duration, electrocardiogram 94 ms Invalid Interpretation Code [facility] Phone: [phone] QT Interval new path ms [employer] Work Phone: [phone] QT interval, electrocardiogram new path ms Invalid Interpretation Code [employer] [facility] Phone: [phone] QTc Higu[place] 410 ms [employer] Work Phone: [phone] T Kempner 44 deg [facility] Work Phone: [phone] T wave axis, electrocardiogram 44 deg Invalid Interpretation Code [facility] Work Phone: [phone] Vital Signs Date Time Vital Sign Value Performing Clinician Laurie rodríguez 01-16-2025 10:53-0400 Body height 152.[address] Luis Miguel Gilbert DO Work Phone: [facility] 01-16-2025 10:53-0400 Body mass index (BMI) [Ratio] 32.2 kg/m2 Dr. Luis Miguel Gilbert DO Work Phone: [facility] 01-16-2025 10:53-0400 Body weight 74.[address] Luis Miguel Gilbert DO Work Phone: [facility] 01-16-2025 10:53-0400 Diastolic blood pressure 97 mm[Hg] Dr. Luis Miguel Gilbert DO Work Phone: [facility] 01-16-2025 10:53-0400 Heart rate 68 /min Dr. Luis Miguel Gilbert DO Work Phone: [facility] 01-16-2025 10:53-0400 Respiratory rate 18 /min Dr. Luis Miguel Gilbert DO Work Phone: [facility] 01-16-2025 10:53-0400 SaO2% (BldA) [Mass fraction] 93 % Dr. Luis Miguel Gilbert DO Work Phone: [facility] 01-16-2025 10:53-0400 Systolic blood pressure 183 mm[Hg] Dr. Luis Miguel Gilbert DO Work Phone: [facility] 07-31-2024 14:14-0500 Body height 152.4 cm Nia Shen MD Work Phone: [facility] 07-31-2024 14:14-0500 Body mass index (BMI) [Ratio] 31.64 kg/m2 Nia Shen MD Work Phone: [facility] 07-31-2024 14:14-0500 Body weight 73.48 kg Nia Shen MD Work Phone: [facility] 07-31-2024 14:14-0500 Diastolic blood pressure 64 mm[Hg] Nia Shen MD Work Phone: [facility] 07-31-2024 14:14-0500 Systolic blood pressure 124 mm[Hg] Nia Shen MD Work Phone: [facility] 04-10-2023 08:17-0400 Body height 152.4 cm Nia Shen MD Work Phone: [facility] 04-10-2023 08:17-0400 Body weight 71.85 kg Nia Shen MD Work Phone: [facility] 04-10-2023 08:17-0400 Diastolic blood pressure 72 mm[Hg] Nia Shen MD Work Phone: [facility] 04-10-2023 08:17-0400 Systolic blood pressure 120 mm[Hg] Nia Shen MD Work Phone: [facility] 06-06-2022 11:13-0400 Body height 152.[address] Luis Miguel Gilbert Work Phone: [facility] 06-06-2022 11:13-0400 Body mass index (BMI) [Ratio] 31.4 kg/m2 Dr. Luis Miguel Gilbert Work Phone: [facility] 06-06-2022 11:13-0400 Body weight 73.[address] Luis Miguel Gilbert Work Phone: [facility] 06-06-2022 11:13-0400 Diastolic blood pressure 81 mm[Hg] Dr. Luis Miguel Gilbert Work Phone: [facility] 06-06-2022 11:13-0400 Heart rate 73 /min Dr. Luis Miguel Gilbert Work Phone: [facility] 06-06-2022 11:13-0400 Respiratory rate 18 /min Dr. Luis Miguel Gilbert Work Phone: [facility] 06-06-2022 11:13-0400 SaO2% (BldA) [Mass fraction] 99 % Dr. Luis Miguel Gilbert Work Phone: [facility] 06-06-2022 11:13-0400 Systolic blood pressure 186 mm[Hg] Dr. Luis Miguel Gilbert Work Phone: [facility] 05-30-2022 08:33-0400 Body mass index (BMI) [Ratio] 31.6 kg/m2 Dr. Luis Miguel Gilbert Work Phone: [facility] 05-30-2022 08:33-0400 Body weight 73.[address] Luis Miguel Gilbert Work Phone: [facility] 05-30-2022 08:33-0400 Diastolic blood pressure 78 mm[Hg] Dr. Luis Miguel Gilbert Work Phone: [facility] 05-30-2022 08:33-0400 Heart rate 60 /min Dr. Luis Miguel Gilbert Work Phone: [facility] 05-30-2022 08:33-0400 Respiratory rate 18 /min Dr. Luis Miguel Gilbert Work Phone: [facility] 05-30-2022 08:33-0400 SaO2% (BldA) [Mass fraction] 94 % Dr. Luis Miguel Gilbert Work Phone: [facility] 05-30-2022 08:33-0400 Systolic blood pressure 170 mm[Hg] Dr. Luis Miguel Gilbert Work Phone: [facility] 04-04-2022 09:16-0400 Body height 152 cm Nia Shen MD Work Phone: [facility] 04-04-2022 09:16-0400 Body weight 72.58 kg Nia Shen MD Work Phone: [facility] 04-04-2022 09:16-0400 Diastolic blood pressure 70 mm[Hg] Nia Shen MD Work Phone: [facility] 04-04-2022 09:16-0400 Systolic blood pressure 124 mm[Hg] Nia Shen MD Work Phone: [facility] 02-27-2017 08:26-0400 BMI (Body Mass Index) 30.34 kg/m2 [facility] Work Phone: 02-27-2017 08:26-0400 BP Diastolic 80 mm[Hg] [facility] Work Phone: 02-27-2017 08:26-0400 BP Systolic 170 mm[Hg] [facility] Work Phone: 02-27-2017 08:26-0400 Height 151.13 cm [facility] Work Phone: 02-27-2017 08:26-0400 Pulse (Heart Rate) 56 /min [facility] Work Phone: 02-27-2017 08:26-0400 Respiratory Rate 18 /min [facility] Work Phone: 02-27-2017 08:26-0400 Weight 69.31 kg [facility] Work Phone: 02-29-2016 08:46-0400 BMI (Body Mass Index) 28.59 kg/m2 [facility] Work Phone: 02-29-2016 08:46-0400 BP Diastolic 72 mm[Hg] [facility] Work Phone: 02-29-2016 08:46-0400 BP Systolic 130 mm[Hg] [facility] Work Phone: 02-29-2016 08:46-0400 BSA (Body Surface Area) 1.61 m2 [facility] Work Phone: 02-29-2016 08:46-0400 Height 151.13 cm [facility] Work Phone: 02-29-2016 08:46-0400 Pulse (Heart Rate) 56 /min [facility] Work Phone: 02-29-2016 08:46-0400 Respiratory Rate 16 /min [facility] Work Phone: 02-29-2016 08:46-0400 Weight 65.32 kg [facility] Work Phone: 01-19-2015 15:44-0400 Heart rate 60 /min Harumi DeFinis [facility] Work Phone: Encounters Encounter Date Encounter Type Care Provider Facility Start: 05-19-2025 ambulatory LUIS MIGUEL GILBERT [facility] y:[facility] Start: 01-16-2025 End: 01-16-[address] Piotr Santos MD [facility] Work Phone: Start: 01-16-2025 End: 01-16-2025 ambulatory Luis Miguel Gilbert Facility:[facility] Start: 01-13-2025 End: 01-13-[address] Luis Miguel Gilbert DO Work Phone: [facility] Work Phone: Start: 01-13-2025 End: 01-13-2025 Patient encounter procedure Leah Cisneros PA -Laboratory Work Phone: Start: 01-13-2025 End: 01-13-2025 ambulatory Leah QUICK Facility:[facility] Start: 09-23-2024 End: 11-23-2024 Follow-up encounter Nia Shen MD Work Phone: OB/Gynecology Start: 09-23-2024 End: 09-23-2024 Telephone encounter Nia Shen MD Work Phone: OB/Gynecology Comment on above: Results Start: 09-23-2024 End: 09-23-2024 ambulatory NIA SHEN Facility:[facility] Start: 09-23-2024 End: 09-23-2024 Subsequent hospital visit by physician Bone Density [facility] Work Phone: Radiology Comment on above: Asymptomatic menopau se [Z78.0] Start: 07-31-2024 End: 07-31-2024 ambulatory ALEXUS ORTIZ Facility:[facility] Start: 07-31-2024 End: 07-31-2024 Patient encounter procedure Nia Shen MD Work Phone: OB/Gynecology Comment on above: Encounter for gyneco logical examination (general) (routine) without abnormal findings (Primary Dx); Encounter for screening mammogram for breast cancer; Asymptomatic menopause; Encounter for screening for osteoporosis; Asymptomatic postmenopausal status Start: 07-31-2024 End: 07-31-2024 Patient encounter status Nia Shen MD Work Phone: [facility] Start: 06-19-2024 End: 06-19-2024 ambulatory Leah QUICK Facility:[facility] Start: 05-16-2024 End: 05-16-2024 Subsequent hospital visit by physician Screen Mammo [facility] Mammogram Comment on above: Encounter for screen ing mammogram for malignant neoplasm of breast [Z12.31] Start: 04-16-2024 ambulatory Leah QUICK Facility:[facility] Start: 04-11-2024 End: 04-11-2024 ambulatory Leah QUICK Facility:[facility] Start: 03-21-2024 Telephone encounter Nia Shen MD Work Phone: OB/Gynecology Comment on above: Orders (Mammogram w [facility]) Start: 04-11-2023 Documentation procedure Mammog bassam Coordinator [facility] Start: 04-11-2023 Letter encounter Mammography Coordinator [facility] Department Start: 04-10-2023 End: 04-10-2023 Subsequent hospital visit by physician Screen Mammo [facility] Mammogram Comment on above: Encounter for screen ing mammogram for malignant neoplasm of breast [Z12.31] Start: 04-10-2023 End: 04-10-2023 Patient encounter procedure Nia Shen MD Work Phone: OB/Gynecology Comment on above: Encounter for gyneco logical examination (general) (routine) without abnormal findings (Primary Dx); Encounter for screening mammogram for malignant neoplasm of breast Start: 04-10-2023 End: 04-10-2023 Patient encounter status Nia Shen MD Work Phone: [facility] Start: 11-26-2022 End: 11-26-2022 ambulatory [facility] Work Phone: Start: 11-26-2022 End: 11-26-2022 Patient encounter procedure [facility]-Laboratory Start: 08-19-2022 End: 08-19-[address] Luis Miguel Gilbert Work Phone: [facility] Work Phone: Start: 08-19-2022 End: 08-19-2022 Patient encounter procedure Dr. Luis Miguel Gilbert Work Phone: [facility], [facility] Start: 06-06-2022 End: 06-06-[address] Luis Miguel Gilbert Work Phone: [facility] Start: 05-30-2022 End: 05-30-[address] Luis Miguel Gilbert Work Phone: [facility] Start: 04-04-2022 Documentation procedure Mammog bassam Coordinator [facility] Start: 04-04-2022 Letter encounter Mammography Coordinator [facility] Department Start: 04-04-2022 End: 04-04-2022 Patient encounter procedure Nia Shen MD Work Phone: OB/Gynecology Comment on above: Encounter for gyneco logical examination (general) (routine) without abnormal findings (Primary Dx); Encounter for screening mammogram for malignant neoplasm of breast; Obesity, Class I, BMI 30-34.9 Start: 04-04-2022 End: 04-04-2022 Patient encounter status Nia Shen MD Work Phone: OB/Gynecology Start: 04-04-2022 End: 04-04-2022 Subsequent hospital visit by physician Screen Mammo [facility] Wstr Mammogram Comment on above: Encounter for screen ing mammogram for malignant neoplasm of breast [Z12.31] Procedures Date Procedure Procedure Detail Performing Clinician Start: 09-23-2024 BD DXA TRABECULAR ALICE NE SCORE (TBS) Nia Shen MD Work Phone: Start: 09-23-2024 Dxa bone density kun dy 1/> sites axial skel Nia Shen MD Work Phone: Start: 05-16-2024 Screening digital br east tomosynthesis bi Nia Shen MD Work Phone: Start: 04-10-2023 End: 04-10-2023 Mammography Nia pool MD Work Phone: Start: 08-19-2022 US scan of thyroid Dr. Luis Miguel Gilbert Work Phone: Start: 04-04-2022 MANNY SCREENING W OSMAN Woods MD Work Phone: Start: 04-04-2022 Mammography Nia Shen MD Work Phone: Start: 12-17-2018 Colonoscopy Nia Shen MD Work Phone: Start: 07-28-2017 Lipid 1996 panel - S raquel or Plasma Screen Wstr Start: 07-28-2017 End: 08-02-2017 *Hepatic Function Panel Mayo Adams MD Work Phone: Start: 07-28-2017 End: 08-02-2017 Lipid panel [AGGREGATE] Mayo Adams MD Work Phone: Start: 02-27-2017 End: 02-27-2017 KETTY Walter Chappell Amy SUPERVISOR [employer] Work Phone: Start: 02-27-2017 End: 02-27-2017 Follow Up Appt 6 months Walter Chappell Amy SUPERVISOR [employer] Work Phone: Start: 02-27-2017 End: 02-27-2017 Follow Up BP Check Walter Chappell Amy SUPERVISOR [employer] Work Phone: Start: 09-01-2016 End: 01-26-2017 *Hepatic Function Panel Mayo Adams MD Work Phone: Start: 09-01-2016 End: 01-26-2017 Lipid panel [AGGREGATE] Mayo Adams MD Work Phone: Start: 02-29-2016 End: 02-29-2016 KETTY Adams MD Work Phone: Start: 02-29-2016 End: 02-29-2016 Follow Up Appt 6 months Mayo Adams MD Work Phone: Start: 02-12-2016 End: 02-29-2016 Lipid panel [AGGREGATE] Mayo Adams MD Work Phone: Start: 10-12-2015 End: 10-12-2015 *Hepatic Function Panel Mayo Adams MD Work Phone: Start: 10-12-2015 End: 10-12-2015 Lipid panel [AGGREGATE] Mayo Adams MD Work Phone: Start: 03-24-2015 End: 04-13-2015 *Hepatic Function Panel Mayo Adams MD Work Phone: Start: 03-24-2015 End: 04-13-2015 Lipid panel [AGGREGATE] Mayo Adams MD Work Phone: Start: 02-17-2015 End: 02-17-2015 Dietary management education, guidance, and counseling Tiara Kohli Start: 02-17-2015 End: 02-18-2016 KETTY Adams MD Work Phone: Start: 02-17-2015 End: 02-18-2015 Documentation of current medications Mayo Adams MD Work Phone: Start: 02-17-2015 End: 02-18-2016 Follow Up Appt 1 year Jude Mckenna Work Phone: Start: 02-10-2015 End: 02-10-2015 Lipid panel [AGGREGATE] Mayo Adams MD Work Phone: Start: 02-02-2015 End: 02-02-2015 Follow Up BP Check Mayo Adams MD Work Phone: Start: 01-19-2015 End: 02-10-2015 *Hepatic Function Panel Mayo Adams MD Work Phone: Start: 01-19-2015 End: 01-19-2015 DJN Mayo Adams MD Work Phone: Start: 01-19-2015 End: 02-18-2016 Electrocardiogram, complete Mayo low MD Work Phone: Start: 01-19-2015 End: 01-19-2015 Follow Up Appt 1 month Mayo Adams MD Work Phone: Start: 01-19-2015 End: 02-05-2015 Stress Echocardiogram (treadmill) Mayo Adams MD Work Phone: Plan of Treatment Date Care Activity Detail Author Start: 12-17-2028 Colonoscopy COLONOSCOPY [facility] Start: 12-17-2028 COLORECTAL CANCER SCREENING COLORECTAL CANCER SCREENING [facility] Start: 12-17-2028 Screening for malign ant neoplasm of colon [facility] Start: 08-06-2025 End: 08-06-2025 Patient encounter procedure 08/06/2025 11:20 AM EST Office Visit OB/Gynecology [address] [place] [id number] Nia Griffin MD [address] [place] [id number] Annual OB/Gynecology Comment on above: Annual Start: 07-31-2025 BP Controlled (<130/80) BP Controlle d (<130/80) [facility] Start: 05-19-2025 End: 05-19-2025 Patient encounter procedure 05/19/2025 9:10 AM EDT Appointment Mammogram [address] [place] [id number] Encounter for screening mammogram for breast cancer [Z12.31] Mammogram Comment on above: Encounter for screen ing mammogram for breast cancer [Z12.31] Start: 05-16-2025 Screening for malign ant neoplasm of breast Mammogram Screening [facility] Start: 09-23-2024 End: 09-23-2024 Patient encounter procedure 09/23/2024 8:55 AM EST Appointment Radiology [address] [place] [id number] Asymptomatic menopause [Z78.0]; Encounter for screening for osteoporosis [Z13.820]; Asymptomatic postmenopausal status [Z78.0] Radiology Comment on above: Asymptomatic menopau se [Z78.0]; Encounter for screening for osteoporosis [Z13.820]; Asymptomatic postmenopausal status [Z78.0] Start: 08-14-2024 Advance Directive Discussion Advance Directive Discussion [facility] Start: 07-31-2024 End: 07-31-2024 Patient encounter procedure Mammogram Comment on above: screen [facility] [place] ANNUAL, appt has bee n rescheduled, confirm with patient OK, Start: 04-14-2024 Covid-19 Vaccine ( season) Covid-19 Vaccine () [facility] Start: 04-14-2024 Influenza vaccination Influenza Vacc ine (#1) [facility] Start: 04-10-2024 BP CONTROLLED (<130/80) BP CONTROLLE D (<130/80) [facility] Start: 04-10-2024 Mammography [facility] Start: 04-10-2024 Screening for malign ant neoplasm of breast Mammogram Screening [facility] Start: 02-24-2024 Advance Directive Discussion Advance Directive Discussion [facility] Start: 02-24-2024 Pneumococcal Vaccine : 65+ (1 of 1 - PCV) Pneumococcal Vaccine: 65+ (1 of 1 - PCV) [facility] Start: 02-24-2024 Screening for osteoporosis Bone Density Screening [facility] Start: 04-14-2023 Covid-19 Vaccine () Covid-19 Vaccine () [facility] Start: 04-14-2023 Influenza vaccination C [facility] Start: 04-04-2023 BP CONTROLLED (<130/80) BP CONTROLLE D (<130/80) [facility] Start: 04-04-2023 Mammography MAMMOGRAM [facility] Start: 08-14-2022 DEPRESSION ASSESSMENT DEPRESSION ASS ESSMENT [facility] Start: 07-28-2022 Lipid 1996 panel - S raquel or Plasma Lipid Screening [facility] Start: 07-28-2022 Lipid panel Lipid Screening [facility] Start: 07-28-2022 LIPID SCREEN LIPID SCREEN [facility] Start: 04-14-2022 Influenza vaccination INFLUENZA (#1) [facility] Start: 01-01-2022 COVID-19 VACCINE (4 - Booster for Pfizer series) COVID-19 VACCINE (4 - Booster for Pfizer series) [facility] Start: 2019 RSV Vaccine (1 - 1-d ose 60+ series) RSV Vaccine (1 - 1-dose 60+ series) [facility] Start: 09-07-2017 End: 09-07-2017 Appointment Appointment [facility] Work Phone: Start: 07-28-2017 End: 08-02-2017 *Hepatic Function Panel *Hepatic Function Panel [facility] Work Phone: Start: 07-28-2017 End: 08-02-2017 Lipid panel [AGGREGATE] *Lipid Profile CC PCP [facility] Work Phone: Start: 03-13-2017 End: 03-13-2017 Appointment Appointment [facility] Work Phone: Start: 02-27-2017 End: 02-27-2017 Appointment Appointment [facility] Work Phone: Start: 02-27-2017 End: 02-27-2017 KETTY HDEZ [facility] Work Phone: Start: 02-27-2017 End: 02-27-2017 Follow Up Appt 6 months Follow Up Appt 6 months [facility] Work Phone: Start: 02-27-2017 End: 02-27-2017 Follow Up BP Check Follow Up BP Check [facility] Work Phone: Start: 09-01-2016 End: 01-26-2017 *Hepatic Function Panel *Hepatic Function Panel [facility] Work Phone: Start: 09-01-2016 End: 01-26-2017 Lipid panel [AGGREGATE] *Lipid Profile CC PCP [facility] Work Phone: Start: 02-29-2016 End: 02-29-2016 GABYN GABYN [facility] Work Phone: Start: 02-29-2016 End: 02-29-2016 Follow Up Appt 6 months Follow Up Appt 6 months [facility] Work Phone: Start: 02-12-2016 End: 02-29-2016 Lipid panel [AGGREGATE] *Lipid Profile CC PCP [facility] Work Phone: Start: 10-12-2015 End: 10-12-2015 *Hepatic Function Panel *Hepatic Function Panel [facility] Work Phone: Start: 10-12-2015 End: 10-12-2015 Lipid panel [AGGREGATE] *Lipid Profile CC PCP [facility] Work Phone: Start: 03-24-2015 End: 04-13-2015 *Hepatic Function Panel *Hepatic Function Panel [facility] Work Phone: Start: 03-24-2015 End: 04-13-2015 Lipid panel [AGGREGATE] *Lipid Profile CC PCP [facility] Work Phone: Start: 02-17-2015 End: 02-18-2016 DJN DJN [facility] Work Phone: Start: 02-17-2015 End: 02-18-2016 Follow Up Appt 1 year Follow Up Appt 1 year [facility] Work Phone: Start: 02-10-2015 End: 02-10-2015 Lipid panel [AGGREGATE] *Lipid Profile CC PCP [facility] Work Phone: Start: 02-02-2015 End: 02-02-2015 Follow Up BP Check Follow Up BP Check [facility] Phone: Start: 01-19-2015 End: 02-10-2015 *Hepatic Function Panel *Hepatic Function Panel [facility] Work Phone: Start: 01-19-2015 End: 01-19-2015 DJN DJN [facility] Work Phone: Start: 01-19-2015 End: 02-18-2016 Electrocardiogram, complete EKG (In office) [facility] Work Phone: Start: 01-19-2015 End: 01-19-2015 Follow Up Appt 1 month Follow Up Appt 1 month [facility] Phone: Start: 01-19-2015 End: 01-19-2015 Stress Echocardiogram (treadmill) Stress Echocardiogram (treadmill) [employer] [facility]) Phone: Start: 2009 Pneumococcal Vaccine : 50+ (1 of 1 - PCV) Pneumococcal Vaccine: 50+ (1 of 1 - PCV) [facility] Start: 02-24-2004 COLOGUARD (FIT-DNA) COLOGUARD (FIT-D NA) [facility] Start: 02-24-[address] COLONOGRAPHY [facility] Start: 02-24-2004 DIABETES SCREEN DIABETES SCREEN [facility] Start: 02-24-2004 Diabetes Screening Diabetes Screenin g [facility] Start: 02-24-2004 FECAL OCCULT BLOOD FECAL OCCULT BLOO D [facility] Start: 02-24-2004 LIPID SCREEN LIPID SCREEN [facility] Start: 02-24-2004 Screening for malign ant neoplasm of colon [facility] Start: 02-24-2004 [facility] Start: 1978 Urine microalbumin profile [facility] Start: 1977 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[employer] JASE DISEASE VISIT ANNUAL PCP TEAM CHRONIC DISEASE VISIT [facility] Start: 1977 Anxiety Screening Anxiety Screening [facility] Start: 1977 BP Controlled (<130/80) BP Controlle d (<130/80) [facility] Start: 1977 Depression Screening Depression Scre ening [facility] Start: 1977 HEPATITIS C SCREENING HEPATITIS C [facility] Start: 1977 Hepatitis C screening Hepatitis C [facility] Start: 1977 HIV SCREENING HIV SCREENING [facility] Start: 1977 HIV screening HIV Screening [facility] Start: 1971 Adult depression screening assessment DEPRESSION SCREENING [facility] End: 08-30-2025 BD DXA TRABECULAR BONE SCORE (TBS) BD DXA TRABECULAR BONE SCORE (TBS) Radiology Routine Asymptomatic menopause Encounter for screening for osteoporosis Asymptomatic postmenopausal status 1 Occurrences starting 07/31/2024 until 08/30/2025 [facility] Comment on above: 1 Occurrences starti ng 07/31/2024 until 08/30/2025 End: 04-20-2025 DBT Breast - bilateral screening MANNY SCREENING W OSMAN Radiology Routine Encounter for screening mammogram for malignant neoplasm of breast 1 Occurrences starting 03/21/2024 until 04/20/2025 [facility] Work Phone: Comment on above: 1 Occurrences starti ng 03/21/2024 until 04/20/2025 End: 08-30-2025 DBT Breast - bilateral screening MANNY SCREENING W OSMAN Radiology Routine Encounter for screening mammogram for breast cancer 1 Occurrences starting 07/31/2024 until 08/30/2025 [facility] Work Phone: Comment on above: 1 Occurrences starti ng 07/31/2024 until 08/30/2025 End: 08-30-2025 DXA Skeletal system.axial Views for bone density DXA-AXIAL SKELETON Radiology Routine Asymptomatic menopause Encounter for screening for osteoporosis Asymptomatic postmenopausal status 1 Occurrences starting 07/31/2024 until 08/30/2025 [facility] Comment on above: 1 Occurrences starti ng 07/31/2024 until 08/30/2025 End: 05-04-2023 MANNY SCREENING W OSMAN MANNY SCREENING W OSMAN Radiology Routine Encounter for screening mammogram for malignant neoplasm of breast 1 Occurrences starting 04/04/2022 until 05/04/2023 [facility] Work Phone: Comment on above: 1 Occurrences starti ng 04/04/2022 until 05/04/2023 End: 05-09-2024 MANNY SCREENING W OSMAN MANNY SCREENING W OSMAN Radiology Routine Encounter for screening mammogram for malignant neoplasm of breast 1 Occurrences starting 04/10/2023 until 05/09/2024 [facility] Work Phone: Comment on above: 1 Occurrences starti ng 04/10/2023 until 05/09/2024 MANNY SCREENING W OSMAN MANNY SCREENI NG W OSMAN Radiology Routine Encounter for screening mammogram for malignant neoplasm of breast 04/10/2023 9:39 AM EDT [facility] Work Phone: Patient Education [facility] Work Phone: Immunizations Immunization Date Immunization Notes Care Provider [facility] 06-10-2024 influenza virus vaccine, unspecified formulation Nia Shen MD Work Phone: [facility] 04-27-2023 influenza, injectabl e, quadrivalent, preservative free Nia Shen MD Work Phone: [facility] 04-27-2023 respiratory syncytia l virus (RSV) vaccine, adjuvanted (AREXVY) Nia Shen MD Work Phone: [facility] 04-27-2023 influenza virus vaccine, unspecified formulation [facility] 05-27-2022 influenza, injectabl e, quadrivalent, preservative free Nia Shen MD Work Phone: [facility] 05-27-2022 influenza virus vaccine, unspecified formulation [facility] 05-28-2021 influenza, injectabl e, quadrivalent, preservative free Nia Shen MD Work Phone: [facility] 11-13-2020 Covid (Pfizer) Dr. Luis Miguel haider Work Phone: [facility] 10-23-2020 Covid (Pfizer) Dr. Luis Miguel haider Work Phone: [facility] 08-02-2020 zoster vaccine recombinant Nia Shen MD Work Phone: [facility] 05-10-2020 influenza, injectabl e, quadrivalent, preservative free Nia Shen MD Work Phone: [facility] 05-10-2020 zoster vaccine recombinant Nia Shen MD Work Phone: [facility] 06-18-2019 influenza, injectabl e, quadrivalent, preservative free Nia Shen MD Work Phone: [facility] Payers Date Payer Category Payer Medicare (Managed Care) [employer] [place] [id number] 2024 Self-pay [id number] 2024 Unknown [id number] 2024 Medicare [employer] MEDICARE A ETNA MEDICARE O [id number] 2024-Present [phone] [address] [place] [address] [employer] [id number] 2024 Private Health Insurance 101 [id number] 2019 Unknown [employer]ARGRET [employer] PPO [id number] 2019-Present [phone] [address] [place] [address] PPO [id number] Unknown [id number] Unknown [facility] PACKAGE PLAN [phone] [id number] Unknown [id number] Unknown [id number] Unknown [id number] Unknown [id number] Unknown [id number] Unknown [id number] Social History Date Type Detail Facility Start: 04-04-2022 End: 01-16-2025 Tobacco smoking status RIIS Never smoked tobacco [facility] Start: 04-04-2022 Tobacco use and exposure Smokeless tobacco non-user [facility] Start: 04-04-2022 End: 07-31-2024 Alcohol intake Current non-drinker of alcohol (finding) [facility] Start: 1960 Sex Assigned At Not on file C [facility] Start: 06-06-2022 End: 06-06-2022 Tobacco smoking status RIIS Unknown if ever smoked [facility] Start: 1960 Sex Assigned At Female [facility] Start: 04-10-2023 End: 07-31-2024 History of Social function [facility] Start: 04-10-2023 End: 07-31-2024 Tobacco use panel [facility] National Score (1-100), lower number is lower risk 51 [facility] Clinical Notes 04-04-2022 to 05-19-2025 Telephone Encounter - Renetta Jeter RN - 09/23/2024 1:35 PM ESTTelephone Encounter - Renetta Jeter RN - 09/23/2024 1:35 PM ESTTelephone Encounter - Renetta Jeter RN - 09/23/2024 1:22 PM EST Note Date & Type Note Facility 05-19-2025 Note HNO ID: [id number] Author: KELSEY MONTERO Mammo Tech Service: ? Author Type: Sample Dye Mixer Type: Progress Notes Filed: 05/19/2025 09:17 Note Text: Radiology Service Progress Note PATIENT NAME: Marine Carter DATE OF SERVICE: May 19, 2025 TIME: 9:17 AM PATIENT IDENTITY VERIFICATION COMPLETED USING TWO (2) IDENTIFIERS: Name and Date of confirmed by patient verbally. FALL SCREENING: Has the patient had 2 falls in the last year or 1 fall with injury or currently using an Ambulatory Assistive Device (Walker, Cane, Wheelchair, Crutches, etc.)? No PATIENT GENDER DATA: Assigned female at . status: : No status: NO. PATIENT RELEVANT IMPLANT DATA REVIEWED: Not Applicable PATIENT PRESENTS WITH AN IMPLANTABLE OR ATTACHED FILM COLOR TESTER: No RADIOLOGY DEPARTMENT: Mammography PERIPHERAL IV DATA: Not applicable SIGNED BY: Henry Villar May 19, 2025 9:17 AM [facility] 09-23-2024 Telephone encounter Note Patient notified. Renetta Jeter RN [facility] 09-23-2024 Miscellaneous Notes Patient notified. Renetta Jeter RN Left message for patient to call office. Renetta Jeter RN Images from the original note were not included. Nia Griffin MD P Wstr Ob-Glue Maker Pool Please notify patient of the following: Your bone density results show osteopenia or thinning of the bone. My recommendation is that you get enough calcium (1000 - 1200 mg/day) and Vitamin D (600 - 800 units/day) through your diet and supplements and weight-bearing exercise. We should consider a repeat bone density test in 2-4 years. documented in this encounter [facility] 09-23-2024 Telephone encounter Note Left message for patient to call office. Renetta Jeter RN [facility] 09-23-2024 Telephone encounter Note Images from the original note were not included. Nia Griffin MD P [facility] Ob-Glue Maker Pool Please notify patient of the following: Your bone density results show osteopenia or thinning of the bone. My recommendation is that you get enough calcium (1000 - 1200 mg/day) and Vitamin D (600 - 800 units/day) through your diet and supplements and weight-bearing exercise. We should consider a repeat bone density test in 2-4 years. [facility] 09-23-2024 History of Presen t illness Narrative Radiology Service Progress Note PATIENT NAME: Marine Carter DATE OF SERVICE: September 23, 2024 TIME: 8:50 AM PATIENT IDENTITY VERIFICATION COMPLETED USING TWO (2) IDENTIFIERS: Name and Date of confirmed by patient verbally. FALL SCREENING: Has the patient had 2 falls in the last year or 1 fall with injury or currently using an Ambulatory Assistive Device (Walker, Cane, Wheelchair, Crutches, etc.)? No PATIENT GENDER DATA: Assigned female at . status: : No status: NO. PATIENT RELEVANT IMPLANT DATA REVIEWED: Not Applicable PATIENT PRESENTS WITH AN IMPLANTABLE OR ATTACHED FILM COLOR TESTER: No RADIOLOGY DEPARTMENT: Bone Density PERIPHERAL IV DATA: Not applicable SIGNED BY: RT Vince(R) September 23, 2024 8:50 AM documented in this encounter [facility] 09-23-2024 Note HNO ID: [id number] Author: FLOYD RIGGS RT (R) Service: ? Author Type: Technologist Type: Progress Notes Filed: 09/23/2024 08:56 Note Text: Radiology Service Progress Note PATIENT NAME: Marine Carter DATE OF SERVICE: September 23, 2024 TIME: 8:50 AM PATIENT IDENTITY VERIFICATION COMPLETED USING TWO (2) IDENTIFIERS: Name and Date of confirmed by patient verbally. FALL SCREENING: Has the patient had 2 falls in the last year or 1 fall with injury or currently using an Ambulatory Assistive Device (Walker, Cane, Wheelchair, Crutches, etc.)? No PATIENT GENDER DATA: Assigned female at . status: : No status: NO. PATIENT RELEVANT IMPLANT DATA REVIEWED: Not Applicable PATIENT PRESENTS WITH AN IMPLANTABLE OR ATTACHED FILM COLOR TESTER: No RADIOLOGY DEPARTMENT: Bone Density PERIPHERAL IV DATA: Not applicable SIGNED BY: PAT Clarke) September 23, 2024 8:50 AM [facility] 07-31-2024 Instructions Nia Griffin MD - 07/31/2024 2:40 PM EST BONE MINERAL DENSITY PATIENT INSTRUCTIONS Bone mineral density testing measures the amount of calcium in certain parts of your bones. This information determines how strong your bones are. The test is used to detect osteoporosis, a disease in which the bone's mineral content and density are low, increasing a person's risk of fractures. The lumbar spine (lower back) and the hip are the skeletal sites usually examined. For the test, remember that: 1. You cannot take this test if you are . 2. Eat a normal diet on the day of the test. 3. Take your medications as you normally would. 4. DO NOT take calcium supplements (such as Tums) for 24 hours before the test. 5. On the day of the test, leave valuables (jewelry or credit cards) at home. 6. The test should be performed prior to oral, rectal or IV contrast studies, or at least 7 days after any of these studies. For the test, you may be asked to wear a hospital gown. You will lie on your back, on a padded table, in a comfortable position. Generally, you can resume your usual activities immediately. documented in this encounter [facility] 07-31-2024 Note HNO ID: [id number] Author: NIA GRIFFIN MD Service: ? Author Type: Physician Type: Progress Notes Filed: 07/31/2024 14:48 Note Text: Senior Manager Mmcoe offered: Patient declinesIlene Peñaloza is a 64 year old who presents for an annual gynecologic exam without complaints. Postmenopausal: Yes HRT use: No. History of abnormal pap: No Last mammogram: 2023 normal History of abnormal mammogram: No Sexually active: Yes History of STDS: None Patient concerns for STD exposure: No. Pain with intercourse: No Postcoital bleeding: No Hot flashes: No Night sweats: No OB History T0 L0 SAB0 IAB0 Ectopic0 Multiple0 Live Births0 Glue Maker History LMP: Hysterectomy Age at Menarche: Age at First : Age at Menopause: Glue Maker History Comments: Sexual Activity: Yes; Male; hysterectomy Contraception: Surgical PAST MEDICAL HISTORY Diagnosis Date Cataracts, bilateral Essential hypertension, benign Headache(784.0) Other and unspecified hyperlipidemia Hyperlipidemia PAST SURGICAL HISTORY Procedure Laterality Date COLONOSCOPY FLX DX W/COLLJ SPEC WHEN PFRMD 12/17/2018 Colonoscopy ESOPG/GSTR TAMPONADE W/BALO SENGSTAKEN TYPE 1979 swallowed object REMOVE CATARACT, INSERT LENS,EX 2012 TOTAL ABDOMINAL HYSTERECT W/WO RMVL TUBE OVARY Hysterectomy, TODD FAMILY HISTORY Problem Relation Age of Onset other (heart attack) Father at age 59 other (heart disease) Brother Hypertension Sister SOCIAL HISTORY Social History Tobacco Use Smoking status: Never Smokeless tobacco: Never Vaping Use Vaping status: Never Used Substance Use Topics Alcohol use: No Drug use: No REVIEW OF SYSTEMS Abdomen: No abdominal pain, nausea, vomiting, diarrhea, or constipation. No bloating, early satiety, indigestion, or increased flatulence. Bladder: No dysuria, gross hematuria, urinary frequency, urinary urgency, or incontinence Breast: No breast lumps, nipple d/c, overlying skin changes, redness or skin retraction Allergies and current medication updated:Yes SENSITIVE EXAM: The sensitive examination was discussed with the Patient or Patient's Authorized Marketing Research Intern. As applicable, any other physician, advance practice provider, medical student, or other health professional student that will be observing or involved in the sensitive examination for educational or training purposes was discussed with the Patient or Authorized Marketing Research Intern. The Patient or Authorized Marketing Research Intern has agreed to proceed with the sensitive examination. (Sensitive examination includes inspection and/or palpation of the breasts, pelvis, prostate and anorectal regions). EXAM: BP 124/64 Ht 5' 0 (1.52m) Wt 162 lb (73.5kg) BMI 31.64 kg/(m2). GENERAL: pleasant, female in no apparent distress HEENT: Normocephalic, atraumatic, mucus membranes moist, and no lesions NECK: Supple, full range of motion, no adenopathy, and thyroid normal DERMATOLOGY: Normal, without lesions, non-icteric, and non-hirsute BREAST: soft, non-tender, symmetric, no dominant mass, normal nipple-areolar complex, no lymphadenopathy, and no nipple discharge ABDOMEN: soft, non-tender, and no masses PELVIC: external genitalia normal, normal Bartholin's glands, urethra, Geiger's glands, no vulvar lesions, good vaginal support, physiologic discharge present, normal appearing perineal body and perianal region, cervix surgically absent BIMANUAL: no adnexal masses, non-tender, and uterus surgically absent RECTOVAGINAL: deferred. NEURO: alert and oriented x3,exam grossly non-focal EXTREMITIES: normal ASSESSMENT/PLAN: 1) Health maintenance: Pap/HPV screening no longer needed Mammogram ordered Mammogram up to date Nutrition, exercise and routine health maintenance exams reviewed. Calcium/Vitamin D supplementation information provided. Colon cancer screening: up to date with screening BMD: ordered 2) Follow up one year or sooner as needed Nia Sin MD [facility] 07-31-2024 History of Presen t illness Narrative Senior Manager Mmcoe offered: Patient declines. Marine is a 64 year old who presents for an annual gynecologic exam without complaints. Postmenopausal: Yes HRT use: No. History of abnormal pap: No Last mammogram: 2023 normal History of abnormal mammogram: No Sexually active: Yes History of STDS: None Patient concerns for STD exposure: No. Pain with intercourse: No Postcoital bleeding: No Hot flashes: No Night sweats: No OB History T0 L0 SAB0 IAB0 Ectopic0 Multiple0 Live Births0 Glue Maker History LMP: Hysterectomy Age at Menarche: Age at First : Age at Menopause: Glue Maker History Comments: Sexual Activity: Yes; Male; hysterectomy Contraception: Surgical PAST MEDICAL HISTORY Diagnosis Date Cataracts, bilateral Essential hypertension, benign Headache(784.0) Other and unspecified hyperlipidemia Hyperlipidemia PAST SURGICAL HISTORY Procedure Laterality Date COLONOSCOPY FLX DX W/COLLJ SPEC WHEN PFRMD 12/17/2018 Colonoscopy ESOPG/GSTR TAMPONADE W/BALO SENGSTAKEN TYPE 1979 swallowed object REMOVE CATARACT, INSERT LENS,EX 2012 TOTAL ABDOMINAL HYSTERECT W/WO RMVL TUBE OVARY Hysterectomy, TODD FAMILY HISTORY Problem Relation Age of Onset other (heart attack) Father at age 59 other (heart disease) Brother Hypertension Sister SOCIAL HISTORY Social History Tobacco Use Smoking status: Never Smokeless tobacco: Never Vaping Use Vaping status: Never Used Substance Use Topics Alcohol use: No Drug use: No REVIEW OF SYSTEMS Abdomen: No abdominal pain, nausea, vomiting, diarrhea, or constipation. No bloating, early satiety, indigestion, or increased flatulence. Bladder: No dysuria, gross hematuria, urinary frequency, urinary urgency, or incontinence Breast: No breast lumps, nipple d/c, overlying skin changes, redness or skin retraction Allergies and current medication updated:Yes SENSITIVE EXAM: The sensitive examination was discussed with the Patient or Patient's Authorized Marketing Research Intern. As applicable, any other physician, advance practice provider, medical student, or other health professional student that will be observing or involved in the sensitive examination for educational or training purposes was discussed with the Patient or Authorized Marketing Research Intern. The Patient or Authorized Marketing Research Intern has agreed to proceed with the sensitive examination. (Sensitive examination includes inspection and/or palpation of the breasts, pelvis, prostate and anorectal regions). EXAM: BP 124/64 Ht 5' 0 (1.52m) Wt 162 lb (73.5kg) BMI 31.64 kg/(m^2). GENERAL: pleasant, female in no apparent distress HEENT: Normocephalic, atraumatic, mucus membranes moist, and no lesions NECK: Supple, full range of motion, no adenopathy, and thyroid normal DERMATOLOGY: Normal, without lesions, non-icteric, and non-hirsute BREAST: soft, non-tender, symmetric, no dominant mass, normal nipple-areolar complex, no lymphadenopathy, and no nipple discharge ABDOMEN: soft, non-tender, and no masses PELVIC: external genitalia normal, normal Bartholin's glands, urethra, Geiger's glands, no vulvar lesions, good vaginal support, physiologic discharge present, normal appearing perineal body and perianal region, cervix surgically absent BIMANUAL: no adnexal masses, non-tender, and uterus surgically absent RECTOVAGINAL: deferred. NEURO: alert and oriented x3,exam grossly non-focal EXTREMITIES: normal ASSESSMENT/PLAN: 1) Health maintenance: Pap/HPV screening no longer needed Mammogram ordered Mammogram up to date Nutrition, exercise and routine health maintenance exams reviewed. Calcium/Vitamin D supplementation information provided. Colon cancer screening: up to date with screening BMD: ordered 2) Follow up one year or sooner as needed Nia Sin MD documented in this encounter [facility] 05-16-2024 History of Presen t illness Narrative Radiology Service Progress Note PATIENT NAME: Marine Carter DATE OF SERVICE: May 16, 2024 TIME: 10:50 AM PATIENT IDENTITY VERIFICATION COMPLETED USING TWO (2) IDENTIFIERS: Name and Date of confirmed by patient verbally. FALL SCREENING: Has the patient had 2 falls in the last year or 1 fall with injury or currently using an Ambulatory Assistive Device (Walker, Cane, Wheelchair, Crutches, etc.)? No PATIENT GENDER DATA: Female. status: : No status: NO. PATIENT RELEVANT IMPLANT DATA REVIEWED: Not Applicable PATIENT PRESENTS WITH AN IMPLANTABLE OR ATTACHED FILM COLOR TESTER: No RADIOLOGY DEPARTMENT: Mammography PERIPHERAL IV DATA: Not applicable SIGNED BY: Marine [employer] [facility] Ivonne May 16, 2024 10:50 AM documented in this encounter [facility] 03-21-2024 Telephone encounter Note Order linked to upcoming appt. Hallie Marquis RN [facility] 03-21-2024 Miscellaneous Notes Order linked to upcoming appt. Hallie Marquis RN ordered Mammogram screening with OSMAN order pended. Please link order once signed to appointment on 07/31/24. documented in this encounter [facility] 03-21-2024 Telephone encounter Note ordered [facility] 03-21-2024 Telephone encounter Note Mammogram screening with OSMAN order pended. Please link order once signed to appointment on 07/31/24. [facility] 04-11-2023 Miscellaneous Notes April 12, 2023 PID: [id number] Marine Carter [address] [place] [address] Dear Ms. Carter, We are pleased to inform you that the results of your recent breast imaging exam on 04/10/2023 are normal. Your mammogram demonstrates that you have dense breast tissue, which could hide abnormalities. Dense breast tissue, in and of itself, is a relatively common condition. Therefore, this information is not provided to cause undue concern; rather, it is to raise your awareness and promote discussion with your health care provider regarding the presence of dense breast tissue in addition to other risk factors. Early detection of cancer is very important. We also understand recommendations regarding breast cancer screening are controversial. Please discuss with your primary care provider which strategy is best for you and whether a mammogram is right for you. Your imaging studies and report will be kept on file at [facility] as part of your permanent medical record and are available for your continuing care. Thank you for allowing us to help in meeting your health care needs. Sincerely, Dr. French Interpreting Radiologist [facility] (Normal over 40) documented in this encounter [facility] 04-10-2023 History of Presen t illness Narrative Radiology Service Progress Note PATIENT NAME: Marine Carter DATE OF SERVICE: April 10, 2023 TIME: 9:12 AM PATIENT IDENTITY VERIFICATION COMPLETED USING TWO (2) IDENTIFIERS: Name and Date of confirmed by patient verbally. FALL SCREENING: Has the patient had 2 falls in the last year or 1 fall with injury or currently using an Ambulatory Assistive Device (Walker, Cane, Wheelchair, Crutches, etc.)? No PATIENT GENDER DATA: Female. status: : No status: NO. PATIENT RELEVANT IMPLANT DATA REVIEWED: Not Applicable RADIOLOGY DEPARTMENT: Mammography PERIPHERAL IV DATA: Not applicable SIGNED BY: Kelsey Montero [employer] Ivonne April 10, 2023 9:12 AM documented in this encounter [facility] 04-10-2023 History of Presen t illness Narrative Senior Manager Mmcoe offered: Patient declines. Marine is a 63 year old who presents for an annual gynecologic exam without complaints. Postmenopausal: Yes HRT use: No. Last Pap: HPV: History of abnormal pap: No Last mammogram: 2021 normal History of abnormal mammogram: No Sexually active: Yes History of STDS: None Patient concerns for STD exposure: No. Pain with intercourse: No Postcoital bleeding: No Hot flashes: No Night sweats: No Vaginal dryness: No Exercise: not routine Diet: balanced OB History T0 L0 SAB0 IAB0 Ectopic0 Multiple0 Live Births0 Glue Maker History LMP: Hysterectomy Age at Menarche: Age at First : Age at Menopause: Glue Maker History Comments: Sexual Activity: Yes; Male; hysterectomy Contraception: Surgical PAST MEDICAL HISTORY Diagnosis Date Cataracts, bilateral Essential hypertension, benign Headache(784.0) Other and unspecified hyperlipidemia Hyperlipidemia PAST SURGICAL HISTORY Procedure Laterality Date COLONOSCOPY FLX DX W/COLLJ SPEC WHEN PFRMD 12/17/2018 Colonoscopy ESOPG/GSTR TAMPONADE W/BALO SENGSTAKEN TYPE 1979 swallowed object REMOVE CATARACT, INSERT LENS,EX 2012 TOTAL ABDOMINAL HYSTERECT W/WO RMVL TUBE OVARY Hysterectomy, TODD FAMILY HISTORY Problem Relation Age of Onset other (heart attack) Father at age 59 other (heart disease) Brother Hypertension Sister SOCIAL HISTORY Social History Tobacco Use Smoking status: Never Smokeless tobacco: Never Vaping Use Vaping Use: Never used Substance Use Topics Alcohol use: No Drug use: No REVIEW OF SYSTEMS Abdomen: No abdominal pain, nausea, vomiting, diarrhea, or constipation. No bloating, early satiety, indigestion, or increased flatulence. Bladder: No dysuria, gross hematuria, urinary frequency, urinary urgency, or incontinence Breast: No breast lumps, nipple d/c, overlying skin changes, redness or skin retraction Allergies and current medication updated:Yes EXAM: BP 120/72 Ht 5' 0 (1.52m) Wt 158 lb 6.4 oz (71.9kg) BMI 30.94 kg/(m^2). GENERAL: pleasant, female in no apparent distress HEENT: Normocephalic, atraumatic, mucus membranes moist, and no lesions NECK: Supple, full range of motion, no adenopathy, and thyroid normal DERMATOLOGY: Normal, without lesions, non-icteric, and non-hirsute BREAST: soft, non-tender, symmetric, no dominant mass, normal nipple-areolar complex, no lymphadenopathy, and no nipple discharge ABDOMEN: soft, non-tender, and no masses PELVIC: external genitalia normal, normal Bartholin's glands, urethra, Geiger's glands, no vulvar lesions, good vaginal support, physiologic discharge present, normal appearing perineal body and perianal region, cervix surgically absent BIMANUAL: no adnexal masses, non-tender, and uterus surgically absent RECTOVAGINAL: deferred. NEURO: alert and oriented x3,exam grossly non-focal EXTREMITIES: normal ASSESSMENT/PLAN: 1) Health maintenance: Pap/HPV screening no longer needed Mammogram ordered Nutrition, exercise and routine health maintenance exams reviewed. Calcium/Vitamin D supplementation information provided. Colon cancer screening: up to date with screening 2) Follow up one year or sooner as needed Nia Sin MD documented in this encounter [facility] 04-04-2022 Miscellaneous Notes April 04, 2022 PID: [id number] Marine Carter [address] [place] [address] Dear Ms. Carter, We are pleased to inform you that the results of your recent breast imaging exam on 04/04/2022 are normal. Your mammogram demonstrates that you have dense breast tissue, which could hide abnormalities. Dense breast tissue, in and of itself, is a relatively common condition. Therefore, this information is not provided to cause undue concern; rather, it is to raise your awareness and promote discussion with your health care provider regarding the presence of dense breast tissue in addition to other risk factors. Early detection of cancer is very important. We also understand recommendations regarding breast cancer screening are controversial. Please discuss with your primary care provider which strategy is best for you and whether a mammogram is right for you. Your imaging studies and report will be kept on file at [facility] as part of your permanent medical record and are available for your continuing care. Thank you for allowing us to help in meeting your health care needs. Sincerely, Dr. Paula Interpreting Radiologist [facility] (Normal over 40) documented in this encounter [facility] 04-04-2022 History of Presen t illness Narrative Senior Manager Mmcoe offered: Patient declines. Marine is a 62 year old who presents for an annual gynecologic exam without complaints. 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 Has one son age 15yo- freshman- autistic has aide but doing very well. Postmenopausal: Yes HRT use: No. History of abnormal pap: No Last mammogram: 2021 pending History of abnormal mammogram: No Sexually active: Yes History of STDS: None Patient concerns for STD exposure: No. Pain with intercourse: No Postcoital bleeding: No Hot flashes: No Night sweats: No Vaginal dryness: No Exercise: walking Diet: balanced OB History T0 L0 SAB0 IAB0 Ectopic0 Multiple0 Live Births0 Glue Maker History LMP: Hysterectomy Age at Menarche: Age at First : Age at Menopause: Glue Maker History Comments: Sexual Activity: Yes; Male; hysterectomy Contraception: Surgical PAST MEDICAL HISTORY Diagnosis Date Cataracts, bilateral Essential hypertension, benign Headache(784.0) Other and unspecified hyperlipidemia Hyperlipidemia PAST SURGICAL HISTORY Procedure Laterality Date COLONOSCOPY FLX DX W/COLLJ SPEC WHEN PFRMD 12/17/2018 Colonoscopy ESOPG/GSTR TAMPONADE W/BALO SENGSTAKEN TYPE 1979 swallowed object REMOVE CATARACT, INSERT LENS,EX 2012 TOTAL ABDOMINAL HYSTERECT W/WO RMVL TUBE OVARY Hysterectomy, TODD FAMILY HISTORY Problem Relation Age of Onset other (heart attack) Father at age 59 other (heart disease) Brother Hypertension Sister SOCIAL HISTORY Social History Tobacco Use Smoking status: Never Smokeless tobacco: Never Vaping Use Vaping Use: Never used Substance Use Topics Alcohol use: No Drug use: No REVIEW OF SYSTEMS Abdomen: No abdominal pain, nausea, vomiting, diarrhea, or constipation. No bloating, early satiety, indigestion, or increased flatulence. Bladder: No dysuria, gross hematuria, urinary frequency, urinary urgency, or incontinence Breast: No breast lumps, nipple d/c, overlying skin changes, redness or skin retraction Allergies and current medication updated:Yes EXAM: BP 124/70 Ht 4' 11.843 (1.52m) Wt 160 lb (72.6kg) BMI 31.41 kg/(m^2). GENERAL: pleasant, female in no apparent distress HEENT: Normocephalic, atraumatic, mucus membranes moist, and no lesions NECK: Supple, full range of motion, no adenopathy, and thyroid normal DERMATOLOGY: Normal, without lesions, non-icteric, and non-hirsute BREAST: soft, non-tender, symmetric, no dominant mass, normal nipple-areolar complex, no lymphadenopathy, and no nipple discharge ABDOMEN: soft, non-tender, and no masses PELVIC: external genitalia normal, normal Bartholin's glands, urethra, Geiger's glands, no vulvar lesions, good vaginal support, physiologic discharge present, normal appearing perineal body and perianal region, cervix surgically absent BIMANUAL: no adnexal masses, non-tender, and uterus surgically absent RECTOVAGINAL: rectovaginal exam negative for any masses or nodularity. NEURO: alert and oriented x3,exam grossly non-focal EXTREMITIES: normal ASSESSMENT/PLAN: 1) Health maintenance: Pap/HPV screening no longer needed Mammogram ordered Mammogram up to date Nutrition, exercise and routine health maintenance exams reviewed. Calcium/Vitamin D supplementation information provided. Colon cancer screening: up to date with screening 2) Follow up one year or sooner as needed Nia Sin MD documented in this encounter [facility] 04-04-2022 History of Presen t illness Narrative Radiology Service Progress Note PATIENT NAME: Marine Carter DATE OF SERVICE: April 04, 2022 TIME: 9:04 AM PATIENT IDENTITY VERIFICATION COMPLETED USING TWO (2) IDENTIFIERS: Name and Date of confirmed by patient verbally. FALL SCREENING: Has the patient had 2 falls in the last year or 1 fall with injury or currently using an Ambulatory Assistive Device (Walker, Cane, Wheelchair, Crutches, etc.)? No PATIENT GENDER DATA: Female. status: : No status: NO. PATIENT RELEVANT IMPLANT DATA REVIEWED: Not Applicable RADIOLOGY DEPARTMENT: Mammography PERIPHERAL IV DATA: Not applicable SIGNED BY: Henry Cuellar April 04, 2022 9:04 AM documented in this encounter [facility] Evaluation note Diagnosis Encounter for gynecological examination (general) (routine) without abnormal findings- Primary Encounter for screening mammogram for malignant neoplasm of breast Other screening mammogram Obesity, Class I, BMI 30-34.9 Obesity, unspecified [facility] Diagnosis Encounter for screening mammogram for malignant neoplasm of breast Other screening mammogram [facility] Diagnosis Onset Date Resolution Status Essential hypertension acute Family history of ischemic heart disease chronic Hyperlipidemia chronic Essential hypertension acute Family history of ischemic heart disease chronic Hyperlipidemia chronic [facility] Work Phone: evaluation noteNo assessment information available [facility] Work Phone: [id number] note* Diagnosis Encounter for gynecological examination (general) (routine) without abnormal findings- Primary Encounter for screening mammogram for malignant neoplasm of breast Other screening mammogram [facility] Diagnosis Encounter for screening mammogram for malignant neoplasm of breast Other screening mammogram [facility] Diagnosis Encounter for screening mammogram for malignant neoplasm of breast- Primary Other screening mammogram [facility] Diagnosis Encounter for screening mammogram for malignant neoplasm of breast Other screening mammogram [facility] Diagnosis Encounter for gynecological examination (general) (routine) without abnormal findings- Primary Encounter for screening mammogram for breast cancer Asymptomatic menopause Encounter for screening for osteoporosis Special screening for osteoporosis Asymptomatic postmenopausal status [facility] Diagnosis Asymptomatic menopause Encounter for screening for osteoporosis Special screening for osteoporosis Asymptomatic postmenopausal status [facility] Diagnosis Onset Date Resolution Status Admit Date Essential hypertension acute Ju 2024 10:50am Family history of ischemic h eart disease chronic January 16, 2025 1 0:50am Hyperlipidemia chronic January 16, 2025 10:50am [facility] Work Phone: Reason for referral (narrative)* Diagnostic Procedure Only (Routine) - Pending Review Specialty Diagnoses / Procedures Referred By Cristy t Referred To Contact [facility] Diagnoses Encounter for screening mammogram for malignant neoplasm of breast Procedures MANNY SCREENING W OSMAN SCREENING DIGITAL BREAST TOMOSYNTHESIS BI SCREENING MAMMOGRAPHY BI 2-VIEW BREAST INC CAD Nia Griffin MD [address] [place] [address] [facility] [address] [place] [address] Referral ID Status Reason Start Date Expiration Date Visits Requested Visits Authorized [id number] Pending Review Auto-Generat ed Referral 04/04/2022 05/04/2023 1 1 [facility] for referral (narrative)* Diagnostic Procedure Only (Routine) - Closed Specialty Diagnoses / Procedures Referred By Crsity alvarez Referred To Contact [facility] Diagnoses Encounter for screening mammogram for malignant neoplasm of breast Procedures MANNY SCREENING W OSMAN SCREENING BREAST DGTL OSMAN UNI/BILAT ADD ON SCREENING MAMMOGRAPHY BI 2-VIEW BREAST INC CAD Nia Griffin MD [address] [place] [address] [facility] [address] [place] [address] Referral ID Status Reason Start Date Expiration Date V isits Requested Visits Authorized [id number] Closed Auto-Generate d Referral 04/05/2021 05/05/2022 1 1 [facility] for referral (narrative)* Diagnostic Procedure Only (Routine) - Closed Specialty Diagnoses / Procedures Referred By Cristy alvarez Referred To Contact [facility] Diagnoses Encounter for screening mammogram for malignant neoplasm of breast Procedures MANNY SCREENING W OSMAN SCREENING DIGITAL BREAST TOMOSYNTHESIS BI SCREENING MAMMOGRAPHY BI 2-VIEW BREAST INC CAD Nia Griffin MD [address] [place] [address] [facility] [address] [place] [address] Referral ID Status Reason Start Date Expiration Date V isits Requested Visits Authorized [id number] Closed Auto-Generate d Referral 04/10/2023 05/09/2024 1 1 [facility] for referral (narrative)* Diagnostic Procedure Only (Routine) - Closed Specialty Diagnoses / Procedures Referred By Contac t Referred To Contact [facility] Diagnoses Encounter for screening mammogram for malignant neoplasm of breast Procedures MANNY SCREENING W OSMAN SCREENING DIGITAL BREAST TOMOSYNTHESIS BI SCREENING MAMMOGRAPHY BI 2-VIEW BREAST INC CAD Nia Griffin MD [address] [place] [address] [facility] [address] [place] [address] Referral ID Status Reason Start Date Expiration Date V isits Requested Visits Authorized [id number] Closed Auto-Generate d Referral 04/10/2023 05/09/2024 1 1 [facility] for referral (narrative)* Diagnostic Procedure Only (Routine) - Authorized Specialty Diagnoses / Procedures Referred By Cristy alvarez Referred To Contact [facility] Diagnoses Encounter for screening mammogram for malignant neoplasm of breast Procedures MANNY SCREENING W OSMAN SCREENING DIGITAL BREAST TOMOSYNTHESIS BI SCREENING MAMMOGRAPHY BI 2-VIEW BREAST INC CAD Nia Griffin MD [address] [place] [address] [facility] [address] [place] [address] Referral ID Status Reason Start Date Expiration Date Visits Requested Visits Authorized [id number] Authorized Auto-Generat ed Referral 03/21/2024 04/20/2025 1 1 T [facility] for referral (narrative)* Diagnostic Procedure Only (Routine) - Closed Specialty Diagnoses / Procedures Referred By Cristy alvarez Referred To Contact [facility] Diagnoses Encounter for screening mammogram for malignant neoplasm of breast Procedures MANNY SCREENING W OSMAN SCREENING DIGITAL BREAST TOMOSYNTHESIS BI SCREENING MAMMOGRAPHY BI 2-VIEW BREAST INC CAD NeyNia Gomez MD [address] [place] [address] [facility] [address] [place] [address] Referral ID Status Reason Start Date Expiration Date V isits Requested Visits Authorized [id number] Closed Auto-Generate d Referral 03/21/2024 04/20/2025 1 1 [facility] for referral (narrative)* Diagnostic Procedure Only (Routine) - Authorized Specialty Diagnoses / Procedures Referred By Contac t Referred To Contact XR IMAGING Diagnoses Asymptomatic menopause Encounter for screening for osteoporosis Asymptomatic postmenopausal status Procedures DXA-AXIAL SKELETON DXA BONE DENSITY STUDY SITES AXIAL SKEL Nia Griffin MD [address] [place] [address] Xr Imaging [facility] Referral ID Status Reason Start Date Expiration Date Visits Requested Visits Authorized [id number] Authorized Auto-Generat ed Referral 4 08/30/2025 1 1 * Diagnostic Procedure Only (Routine) - Authorized Specialty Diagnoses / Procedures Referred By Cristy alvarez Referred To Contact [facility] Diagnoses Encounter for screening mammogram for breast cancer Procedures MANNY SCREENING W OSMAN SCREENING DIGITAL BREAST TOMOSYNTHESIS BI SCREENING MAMMOGRAPHY BI 2-VIEW BREAST INC CAD Nia Griffin MD [address] [place] [address] [facility] [address] [facility] [place] [address] Referral ID Status Reason Start Date Expiration Date Visits Requested Visits Authorized [id number] Authorized Auto-Generat ed Referral 4 08/30/2025 1 1 [facility] for referral (narrative)No reason for referral [facility]: Reason for visit Narrative* Diagnostic Procedure Only (Routine) - Closed Specialty Diagnoses / Procedures Referred By Cristy alvarez Referred To Contact [facility] Diagnoses Encounter for screening mammogram for malignant neoplasm of breast Procedures MANNY SCREENING W OSMAN SCREENING DIGITAL BREAST TOMOSYNTHESIS BI SCREENING MAMMOGRAPHY BI 2-VIEW BREAST INC CAD Nia Griffin MD [address] [place] [address] [facility] [address] [place] [address] Referral ID Status Reason Start Date Expiration Date V isits Requested Visits Authorized [id number] Closed Auto-Generate d Referral 04/10/2023 05/09/2024 1 1 [facility] for visit Narrative* Diagnostic Procedure Only (Routine) - Closed Specialty Diagnoses / Procedures Referred By Cristy alvarez Referred To Contact [facility] Diagnoses Encounter for screening mammogram for malignant neoplasm of breast Procedures MANNY SCREENING W OSMAN SCREENING DIGITAL BREAST TOMOSYNTHESIS BI SCREENING MAMMOGRAPHY BI 2-VIEW BREAST INC CAD Nia Griffin MD [address] [place] [address] [facility] [address] [place] [address] Referral ID Status Reason Start Date Expiration Date V isits Requested Visits Authorized [id number] Closed Auto-Generate d Referral 03/21/2024 04/20/2025 1 1 [facility] for visit Narrative* Diagnostic Procedure Only (Routine) - Closed Specialty Diagnoses / Procedures Referred By Cristy alvarez Referred To Contact XR IMAGING Diagnoses Asymptomatic menopause Encounter for screening for osteoporosis Asymptomatic postmenopausal status Procedures DXA-AXIAL SKELETON DXA BONE DENSITY STUDY / SITES AXIAL SKEL Nia Griffin MD [address] [place] [address] Phone: tel: fax: [place] [id number] Referral ID Status Reason Start Date Expiration Date V isits Requested Visits Authorized [id number] Closed Auto-Generate d Referral 07/31/2024 08/30/2025 1 1 [facility] Chief Complaint and Reason for Visit Chief Complaint 6 M FU PER MMM, TO CORELATE BP CUFF NODULE Reason for Visit Essential hypertensi on Family history of ischemic heart disease Hyperlipidemia Essential hypertension Family history of ischemic heart disease Hyperlipidemia Chief Complaint NODULE EORDER Chief Complaint Admit Date E ORDERS January 13, 2025 6:16a m 1 Y FU January 16, 2025 10:50 am Reason for Visit Admit Date Essential hypertension January 16, 2025 10 :50am Family history of ischemic heart disease January 16, 2025 10:50am Hyperlipidemia January 16, 2025 10:50 am Family History No Family History Records Found Relationship Condition Age at Onset Recorded Date/T sharif father Coronary artery disease Unknown Myocardial infarction Unknown brother Coronary artery disease 47 Presence of stent in coronary artery Unkn own Summary Purpose Advance Directives No Advanced Directives Records FoundNo Advanced Directives Records Found Additional Source Comments Source Comments (unrecognize d section and content) In the event this informatio n is protected by the Federal Confidentiality of Alcohol and Drug Abuse Patient Records regulations: The Federal rules restrict any use of the information to criminally investigate or prosecute any alcohol or drug abuse patient.[facility] the event this information is protected by the Federal Confidentiality of Alcohol and Drug Abuse Patient Records regulations: The Federal rules restrict any use of the information to criminally investigate or prosecute any alcohol or drug abuse patient.[facility] the event this information is protected by the Federal Confidentiality of Alcohol and Drug Abuse Patient Records regulations: The Federal rules restrict any use of the information to criminally investigate or prosecute any alcohol or drug abuse patient.[facility] the event this information is protected by the Federal Confidentiality of Alcohol and Drug Abuse Patient Records regulations: The Federal rules restrict any use of the information to criminally investigate or prosecute any alcohol or drug abuse patient.[facility] the event this information is protected by the Federal Confidentiality of Alcohol and Drug Abuse Patient Records regulations: The Federal rules restrict any use of the information to criminally investigate or prosecute any alcohol or drug abuse patient.[facility] the event this information is protected by the Federal Confidentiality of Alcohol and Drug Abuse Patient Records regulations: The Federal rules restrict any use of the information to criminally investigate or prosecute any alcohol or drug abuse patient.[facility] HospitalIn the event this information is protected by the Federal Confidentiality of Alcohol and Drug Abuse Patient Records regulations: The Federal rules restrict any use of the information to criminally investigate or prosecute any alcohol or drug abuse patient.[facility] the event this information is protected by the Federal Confidentiality of Alcohol and Drug Abuse Patient Records regulations: The Federal rules restrict any use of the information to criminally investigate or prosecute any alcohol or drug abuse patient.[facility] the event this information is protected by the Federal Confidentiality of Alcohol and Drug Abuse Patient Records regulations: The Federal rules restrict any use of the information to criminally investigate or prosecute any alcohol or drug abuse patient.[facility]In the event this information is protected by the Federal Confidentiality of Alcohol and Drug Abuse Patient Records regulations: The Federal rules restrict any use of the information to criminally investigate or prosecute any alcohol or drug abuse patient.[facility] HospitalIn the event this information is protected by the Federal Confidentiality of Alcohol and Drug Abuse Patient Records regulations: The Federal rules restrict any use of the information to criminally investigate or prosecute any alcohol or drug abuse patient.[facility] HospitalIn the event this information is protected by the Federal Confidentiality of Alcohol and Drug Abuse Patient Records regulations: The Federal rules restrict any use of the information to criminally investigate or prosecute any alcohol or drug abuse patient.[facility] Reason for Visit (unrecogniz ed section and content) Reason Comments Yearly Exam Reason Comments Radiology Mammogram Specialty Diagnoses / Procedures Referred By Cristy alvarez Referred To Contact [facility] Diagnoses Encounter for screening mammogram for malignant neoplasm of breast Procedures MANNY SCREENING W OSMAN SCREENING BREAST DGTL OSMAN UNI/BILAT ADD ON SCREENING MAMMOGRAPHY BI 2-VIEW BREAST INC Nia Redd MD [address] [place] [address] [facility] [address] [place] [address] Referral ID Status Reason Start Date Expiration Date V isits Requested Visits Authorized Closed Auto-Generate d Referral 04/05/2021 05/05/2022 1 1 Reason Comments Orders Mammogram w OSMAN Reason Comments Yearly Exam Reason Comments Results Care Teams (unrecognized sec tion and content) Appraiser Personal Property Relationship Specialty Start Date End Date Alexus Ortiz PCP - General 11/21/00 Appraiser Personal Property Relationship Specialty Start Date End Date Alexus Ortiz PCP - General 11/21/00 Appraiser Personal Property Relationship Specialty Start Date End Date Alexus Otriz PCP - General 11/21/00 Team Status: Active Member Role Status Dates Dr. Luis Miguel Gilbert DO Family Provider Active Dr. Luis Miguel Gilbert DO Primary Care Provider Active Team Status: Inactive Member Role Status Dates Dr. Luis Miguel Gilbert DO Primary Care Provider, Referrin g Provider Active Leah Cisneros PA, PA Attending Provider Active Team Status: Inactive Member Role Status Dates Dr. Luis Miguel Gilbert DO Primary Care Prov ider, Attending Provider, Referring Provider Active Team Status: Inactive Member Role Status Dates Dr. Luis Miguel Gilbert DO Primary Care Provider Active Leah Cisneros PA, PA Attending Provider, Referr ing Provider Active Appraiser Personal Property Relationship Specialty Start Date End Date Alexus Ortiz PCP - General 11/21/00 Appraiser Personal Property Relationship Specialty Start Date End Date Alexus Ortiz PCP - General 11/21/00 Appraiser Personal Property Relationship Specialty Start Date End Date Alexus Ortiz PCP - General 11/21/00 Appraiser Personal Property Relationship Specialty Start Date End Date Alexus Ortiz PCP - General 11/21/00 Appraiser Personal Property Relationship Specialty Start Date End Date Alexus Ortiz PCP - General 11/21/00 Appraiser Personal Property Relationship Specialty Start Date End Date Vladimir, Luis Miguel Amaya [address] [place], [place] [address] PCP - General Family Medicine 07/31/24 Appraiser Personal Property Relationship Specialty Start Date End Date Luis Miguel Gilbert DO [address] [place], [place] [address] PCP - General Family Medicine 07/31/24 Appraiser Personal Property Relationship Specialty Start Date End Date Luis Miguel Gilbert DO [address] [place], [place] [address] PCP - General Family Medicine 07/31/24 Appraiser Personal Property Relationship Specialty Start Date End Date Luis Miguel Gilbert DO [address] [place] [address] PCP - General Family Medicine 07/31/24 Team Status: Inactive Member Role Status Dates Dr. Luis Miguel Gilbert DO Primary Care Provider Active Start: January 13, 2025 End: January 13, 2025 Leah QUICK PA Attending Provider Active Start: January 13, 2025 End: January 13, 2025 Leah QUICK PA Referring Provider Active Start: January 13, 2025 End: January 13, 2025 Team Status: Inactive Member Role Status Dates Dr. Luis Miguel Gilbert DO Primary Care Provider Active Start: January 16, 2025 End: January 16, 2025 Dr. Luis Miguel Gilbert DO Referring Provider Active Start: January 16, 2025 End: January 16, 2025 Dr. Piotr Santos MD Attending Provider Active Start: January 16, 2025 End: January 16, 2025 Team Status: Active Member Role Status Dates Dr. Luis Miguel Gilbert DO Primary Care Provider Active Start: January 13, 2025 ABDELRAHMAN Delgado Attending Provider Active Start: January 13, 2025 ABDELRAHMAN Delgado Referring Provider Active Start: January 13, 2025 Goals (unrecognized section and content) Goals may be documented in a n alternate sectionGoals may be documented in an alternate sectionGoals may be documented in an alternate sectionGoals may be documented in an alternate section INFORMATION SOURCE (unrecogn ized section and content) DATE CREATED AUTHOR [facility]17/20[facility] DATE CREATED AUTHOR AUTHOR'S ISHAAN ATEDWINA 05/24/2025 [facility] FOR RECORDS PERTAINING TO PATIENTS WHO ARE OR HAVE BEEN ENROLLED IN A CHEMICAL DEPENDENCY/SUBSTANCEABUSE PROGRAM, SOME INFORMATION MAY BE OMITTED. This clinical summary was aggregated from multiple sources. Caution should be exercised in using it in the provision of clinical care. This summary normalizes information from multiple sources, and as a consequence, information in this document may materially change the coding, format and clinical context of patient data. In addition, data may be omitted in some cases. CLINICAL DECISIONS SHOULD BE BASED ON THE PRIMARY CLINICAL RECORDS. [facility]. provides no warranty or guarantee of the accuracy or completeness of information in this document.
[2025-07-14 07:23] LABS: Hematocrit 45.9 % (37-47); Hemoglobin 15.1 g/dL (12.0-15.0); Immature Granulocytes Count 0.030 X10^3/uL (0.0-0.0); Mean Corp Hgb Conc 32.9 g/dL (32-36); Mean Corpuscular Volume 91.6 fL (81-99); Mean Platelet Vol. 10.6 fl (6.2-12.0); NRBC Flagged by Analyzer 0 % (0-5); Platelet Count 275 K/mm3 (150-450); RBC Distribution Width CV 12.9 % (11.6-14.6); RBC Distribution Width SD 43.0 fl (35.1-43.9); Red Blood Count 5.01 M/mm3 (4.2-5.4); White Blood Count 8.7 K/mm3 (4.4-11.0)
[2025-07-14 08:10] LABS: AST(SGOT) 32 U/L (<=31); Alanine Aminotransfer ALT/SGPT 47 U/L (<=34); Albumin, Serum 4.4 g/dL (3.4-4.8); Alkaline Phosphatase 85 U/L (35-104); Bilirubin, Direct 0.31 mg/dL (0.00-0.30); Cholesterol 169 mg/dL (<=200); Globulin 2.3 g/dL (2.2-4.2); Low Density Lipoprotein Calc. 108 mg/dL; Triglycerides 104 mg/dL; Very Low Density Lipoprotein 21 mg/dL (5-40); cholesterol:hdl ratio screen 4.05
[2025-07-14 08:27] LABS: Anion Gap 9 (5-15); BUN 12 mg/dL (4-19); BUN/Creat Ratio 18.8 RATIO (10-20); Calcium,Total 10.1 mg/dL (7.6-11.0); Carbon Dioxide 28.7 mmol/L (21.0-32.0); Chloride 104 mmol/L (98-108); Glucose 96 mg/dL (70-99); Potassium 4.4 mmol/L (3.3-5.1); Vitamin D,25 Hydroxy 47.6 ng/mL (30-100)
== END | disposition home or self-care (01) ==
PROVIDERS: PCP Family Medicine; Referring Provider Physician Assistant Medical; Visit Provider Physician Assistant Medical
DX: I10 Essential (primary) hypertension (principal); M85.80 Other specified disorders of bone density and structure, unspecified site; E04.2 Nontoxic multinodular goiter; E78.00 Pure hypercholesterolemia, unspecified
CPT/HCPCS: 36415; 80048; 80061; 80076; 82306; 84443; 85025